=== PATIENT | female | born 1955 | race Caucasian/White ===

== ENCOUNTER → 2016-12-25 | Outpatient (CLI) | payer BC ==
--- NOTE | 2016-12-26 08:17 | MM ---
Reason for exam: screening (asymptomatic). Last mammogram was performed 1 year and 1 month ago. History: Patient is postmenopausal and has history of other cancer at age 51. Benign stereotactic core biopsy of the right breast, September 06, 2002. Physical Findings: A clinical breast exam by your physician is recommended on an annual basis and results should be correlated with mammographic findings. MG Screening Mammo w CAD Bilateral CC and MLO view(s) were taken. Prior study comparison: December 01, 2015, bilateral MG screening mammo w CAD. September 27, 2014, bilateral MG screening mammo w CAD. There are scattered fibroglandular densities. Previous mammotome biopsy within the right breast. There is no discrete abnormality. ASSESSMENT: Benign, BI-RAD 2 RECOMMENDATION: Routine screening mammogram of both breasts in 1 year.
== END | disposition home or self-care (01) ==
LOC: RADMAMWWP 11:26
PROVIDERS: ATTEND Obstetrics & Gynecology
DX: Z12.31 Encounter for screening mammogram for malignant neoplasm of breast (principal)

== ENCOUNTER → 2019-05-06 | Outpatient (CLI) | payer BC ==
[2019-05-06 16:25] LABS: African American GFR (CKD) >90 (>60 ml/min/1.73 sqM); Blood Urea Nitrogen 10 mg/dL (7-17)
--- NOTE | 2019-05-07 08:10 | CT ---
EXAMINATION TYPE: CT chest w con DATE OF EXAM: 05/06/2019 COMPARISON: 01/01/2019 HISTORY: solitary pulmonary nodule CT DLP: 594.5 mGycm Automated exposure control for dose reduction was used. CONTRAST: CT scan of the chest is performed with IV Contrast, patient injected with 100 mL of Isovue 300. FINDINGS: LUNGS: Previously noted nodule within the lateral segment right middle lobe has resolved and may have reflected a portion of an infiltrate. No distinct nodule is appreciated at this time. No infiltrate or volume loss. No evidence of pleural effusion. MEDIASTINUM: No evidence of the pulmonary arteries with pulmonary arterial hypertension noted. Cardio megaly persists. There are no greater than 1 cm hilar or mediastinal lymph nodes. No pericardial ef fusion is seen. Thoracic aorta is of normal caliber. The heart is not enlarged. UPPER ABDOMEN: No significant abnormality appreciated. OTHER: No additional significant abnormality is seen. IMPRESSION: 1.Previously noted nodule within the lateral segment right middle lobe has resolved and may have refl ected a portion of an infiltrate. No distinct nodule is appreciated at this time. 2. Pulmonary arterial hypertension
== END | disposition home or self-care (01) ==
LOC: RADCTMAIN 15:37
PROVIDERS: ATTEND Internal Medicine
DX: R91.1 Solitary pulmonary nodule (principal); I27.21 Secondary pulmonary arterial hypertension; Z88.2 Allergy status to sulfonamides; Z88.1 Allergy status to other antibiotic agents; Z88.8 Allergy status to other drugs, medicaments and biological substances
CPT/HCPCS: 82565; 84520; 71260; 36415; Q9967

== ENCOUNTER 2019-08-02 12:45 | Inpatient (IN) | payer BC, MEDICARE ==
[2019-08-02] MEDS ORDERED: methylPREDNISolone SOD SUCCI 125 MG/2 ML VIAL IV STA (13:17)
[2019-08-02] MEDS ORDERED: IPRATROPIUM-ALBUTEROL 3 ML NEB INHALATION STA (13:17)
--- NOTE | 2019-08-02 13:27 | ED ---
General Adult HPI - General Chief complaint: Shortness of Breath Stated complaint: MACEY Time Seen by Provider: 08/02/19 13:02 Source: patient, RN notes reviewed Mode of arrival: ambulatory Limitations: no limitations - History of Present Illness Initial comments: Patient is a pleasant 61-year-old female presenting to the emergency Department with cough and dyspnea. Onset of symptoms was yesterday. Patient feels somewhat chilled. Cough is productive with yellow to green sputum. Patient does have history of pulmonary hypertension and occasional dyspnea related to that. No chest pain. No leg pain or leg swelling. - Related Data Home Medications Medication Instructions Recorded Confirmed ALPRAZolam [Xanax] 0.25 mg PO Q6H PRN 08/02/19 08/02/19 Citalopram Hydrobromide [CeleXA] 40 mg PO HS 08/02/19 08/02/19 HYDROcodone/APAP 7.5-325MG [[place] 1 tab PO HS PRN 08/02/19 08/02/19 7.5-325] Insulin Aspart Protam & Aspart 40 unit SQ AC-BRKFST 08/02/19 08/02/19 [NovoLOG MIX 70-30 Flexpen] Insulin Aspart Protam & Aspart 60 unit SQ AC-SUPPER 08/02/19 08/02/19 [NovoLOG MIX 70-30 Flexpen] Losartan Potassium [Cozaar] 100 mg PO HS 08/02/19 08/02/19 Omeprazole 20 mg PO HS 08/02/19 08/02/19 Simvastatin [Zocor] 40 mg PO HS 08/02/19 08/02/19 Tadalafil 40 mg PO HS 08/02/19 08/02/19 Tobramycin [Tobrex 0.3% Ophth Soln] 1 drop BOTH EYES QID 08/02/19 08/02/19 amLODIPine [Norvasc] 2.5 mg PO HS 08/02/19 08/02/19 tiZANidine [Zanaflex] 4 mg PO BID PRN 08/02/19 08/02/19 Allergies Allergy/AdvReac Type Severity Reaction Status Date / Time cefaclor [From Ceclor] Allergy Dyspnea Verified 08/02/19 13:23 sulfamethoxazole Allergy Rash/Hives Verified 08/02/19 13:23 [From Bactrim] trimethoprim [From Bactrim] Allergy Rash/Hives Verified 08/02/19 13:23 Review of Systems ROS Statement: Those systems with pertinent positive or pertinent negative responses have been documented in the HPI. ROS Other: All systems not noted in ROS Statement are negative. Constitutional: Reports: chills Eyes: Denies: eye pain ENT: Denies: ear pain Respiratory: Reports: cough, dyspnea Cardiovascular: Denies: chest pain Endocrine: Reports: fatigue Gastrointestinal: Denies: abdominal pain Genitourinary: Denies: urgency Musculoskeletal: Denies: back pain Skin: Denies: rash Neurological: Denies: weakness Past Medical History Past Medical History: Diabetes Mellitus Additional Past Medical History / Comment(s): pulmonary hypertension. CHF. Past Surgical History: Hysterectomy, Orthopedic Surgery Additional Past Surgical History / Comment(s): pancreatic tumor - liver and spleen. melanoma cx on arm and leg. General Exam Limitations: no limitations General appearance: alert, in no apparent distress Head exam: Present: atraumatic Eye exam: Present: normal appearance, PERRL ENT exam: Present: normal oropharynx Neck exam: Present: normal inspection Respiratory exam: Present: wheezes, decreased breath sounds Cardiovascular Exam: Present: regular rate, normal rhythm GI/Abdominal exam: Present: soft. Absent: tenderness Extremities exam: Present: normal inspection. Absent: pedal edema, calf tenderness Neurological exam: Present: alert Psychiatric exam: Present: normal affect, normal mood Skin exam: Present: normal color Course Vital Signs 08/02/19 08/02/19 08/02/19 12:52 13:18 14:07 Temperature 99.5 F Pulse Rate 86 84 Respiratory 22 24 16 Rate Blood Pressure 169/67 O2 Sat by Pulse 90 L Oximetry 08/02/19 08/02/19 14:19 15:34 Temperature Pulse Rate 82 82 Respiratory 18 18 Rate Blood Pressure 133/79 O2 Sat by Pulse 92 L Oximetry EKG Findings - EKG Comments: EKG Findings:: Normal sinus rhythm 80. GA 16. QRS 108. QT 438. QTC 505. Right axis. Normal QRS. T wave inversion diffusely. Medical Decision Making - Medical Decision Making Patient reevaluated and updated. Case was discussed in detail with Dr. yost, covering for hospital call, who will admit. Dr. Robertson will be placed on consult. - Lab Data Result diagrams: 08/02/19 14:28 08/02/19 14:28 Lab Results 08/02/19 08/02/19 08/02/19 Range/Units 14:28 14:28 14:28 WBC 20.6 H (3.8-10.6) k/uL RBC 4.75 (3.80-5.40) m/uL Hgb 13.5 (11.4-16.0) gm/dL Hct 41.4 (34.0-46.0) % MCV 87.1 (80.0-100.0) fL MCH 28.4 (25.0-35.0) pg MCHC 32.6 (31.0-37.0) g/dL RDW 15.6 H (11.5-15.5) % Plt Count 449 (150-450) k/uL Neutrophils % 76 % Lymphocytes % 15 % Monocytes % 6 % Eosinophils % 1 % Basophils % 1 % Neutrophils # 15.6 H (1.3-7.7) k/uL Lymphocytes # 3.0 (1.0-4.8) k/uL Monocytes # 1.1 H (0-1.0) k/uL Eosinophils # 0.3 (0-0.7) k/uL Basophils # 0.2 (0-0.2) k/uL PT (9.0-12.0) sec INR (<1.2) APTT (22.0-30.0) sec D-Dimer (<0.60) mg/L FEU Sodium 140 (137-145) mmol/L Potassium 5.2 H (3.5-5.1) mmol/L Chloride 107 (98-107) mmol/L Carbon Dioxide 25 (22-30) mmol/L Anion Gap 8 mmol/L BUN 7 (7-17) mg/dL Creatinine 0.51 L (0.52-1.04) mg/dL Est GFR (CKD-EPI)AfAm >90 (>60 ml/min/1.73 sqM) Est GFR (CKD-EPI)NonAf >90 (>60 ml/min/1.73 sqM) Glucose 189 H (74-99) mg/dL Plasma Lactic Acid Ehsan 1.4 (0.7-2.0) mmol/L Calcium 9.1 (8.4-10.2) mg/dL Total Bilirubin 0.6 (0.2-1.3) mg/dL AST 19 (14-36) U/L ALT 17 (9-52) U/L Alkaline Phosphatase 93 (38-126) U/L NT-Pro-B Natriuret Pep pg/mL Total Protein 7.4 (6.3-8.2) g/dL Albumin 3.9 (3.5-5.0) g/dL Urine Color Urine Appearance (Clear) Urine pH (5.0-8.0) Ur Specific [place] (1.001-1.035) Urine Protein (Negative) Urine Glucose (UA) (Negative) Urine Ketones (Negative) Urine Blood (Negative) Urine Nitrite (Negative) Urine Bilirubin (Negative) Urine Urobilinogen (<2.0) mg/dL Ur Leukocyte Esterase (Negative) 08/02/19 08/02/19 08/02/19 Range/Units 14:28 14:28 14:28 WBC (3.8-10.6) k/uL RBC (3.80-5.40) m/uL Hgb (11.4-16.0) gm/dL Hct (34.0-46.0) % MCV (80.0-100.0) fL MCH (25.0-35.0) pg MCHC (31.0-37.0) g/dL RDW (11.5-15.5) % Plt Count (150-450) k/uL Neutrophils % % Lymphocytes % % Monocytes % % Eosinophils % % Basophils % % Neutrophils # (1.3-7.7) k/uL Lymphocytes # (1.0-4.8) k/uL Monocytes # (0-1.0) k/uL Eosinophils # (0-0.7) k/uL Basophils # (0-0.2) k/uL PT 10.3 (9.0-12.0) sec INR 1.0 (<1.2) APTT 24.8 (22.0-30.0) sec D-Dimer 0.69 H (<0.60) mg/L FEU Sodium (137-145) mmol/L Potassium (3.5-5.1) mmol/L Chloride (98-107) mmol/L Carbon Dioxide (22-30) mmol/L Anion Gap mmol/L BUN (7-17) mg/dL Creatinine (0.52-1.04) mg/dL Est GFR (CKD-EPI)AfAm (>60 ml/min/1.73 sqM) Est GFR (CKD-EPI)NonAf (>60 ml/min/1.73 sqM) Glucose (74-99) mg/dL Plasma Lactic Acid Ehsan (0.7-2.0) mmol/L Calcium (8.4-10.2) mg/dL Total Bilirubin (0.2-1.3) mg/dL AST (14-36) U/L ALT (9-52) U/L Alkaline Phosphatase (38-126) U/L NT-Pro-B Natriuret Pep 242 pg/mL Total Protein (6.3-8.2) g/dL Albumin (3.5-5.0) g/dL Urine Color Urine Appearance (Clear) Urine pH (5.0-8.0) Ur Specific [place] (1.001-1.035) Urine Protein (Negative) Urine Glucose (UA) (Negative) Urine Ketones (Negative) Urine Blood (Negative) Urine Nitrite (Negative) Urine Bilirubin (Negative) Urine Urobilinogen (<2.0) mg/dL Ur Leukocyte Esterase (Negative) 08/02/19 Range/Units 15:20 WBC (3.8-10.6) k/uL RBC (3.80-5.40) m/uL Hgb (11.4-16.0) gm/dL Hct (34.0-46.0) % MCV (80.0-100.0) fL MCH (25.0-35.0) pg MCHC (31.0-37.0) g/dL RDW (11.5-15.5) % Plt Count (150-450) k/uL Neutrophils % % Lymphocytes % % Monocytes % % Eosinophils % % Basophils % % Neutrophils # (1.3-7.7) k/uL Lymphocytes # (1.0-4.8) k/uL Monocytes # (0-1.0) k/uL Eosinophils # (0-0.7) k/uL Basophils # (0-0.2) k/uL PT (9.0-12.0) sec INR (<1.2) APTT (22.0-30.0) sec D-Dimer (<0.60) mg/L FEU Sodium (137-145) mmol/L Potassium (3.5-5.1) mmol/L Chloride (98-107) mmol/L Carbon Dioxide (22-30) mmol/L Anion Gap mmol/L BUN (7-17) mg/dL Creatinine (0.52-1.04) mg/dL Est GFR (CKD-EPI)AfAm (>60 ml/min/1.73 sqM) Est GFR (CKD-EPI)NonAf (>60 ml/min/1.73 sqM) Glucose (74-99) mg/dL Plasma Lactic Acid Ehsan (0.7-2.0) mmol/L Calcium (8.4-10.2) mg/dL Total Bilirubin (0.2-1.3) mg/dL AST (14-36) U/L ALT (9-52) U/L Alkaline Phosphatase (38-126) U/L NT-Pro-B Natriuret Pep pg/mL Total Protein (6.3-8.2) g/dL Albumin (3.5-5.0) g/dL Urine Color Yellow Urine Appearance Clear (Clear) Urine pH 7.0 (5.0-8.0) Ur Specific [place] 1.013 (1.001-1.035) Urine Protein Negative (Negative) Urine Glucose (UA) 4+ H (Negative) Urine Ketones 1+ H (Negative) Urine Blood Negative (Negative) Urine Nitrite Negative (Negative) Urine Bilirubin Negative (Negative) Urine Urobilinogen <2.0 (<2.0) mg/dL Ur Leukocyte Esterase Negative (Negative) - Radiology Data Radiology results: image reviewed (Chest x-ray shows cardiomegaly. Stable abnormal findings. Pulmonary artery hypertension.) Disposition Clinical Impression: Acute exacerbation of chronic obstructive pulmonary disease Disposition: ADMITTED IP TO THIS HOSP Is patient prescribed a controlled substance at d/c from ED?: No Referrals: Deisy Robertson MD [Primary Care Provider] - 1-2 days Decision Time: 16:01
[2019-08-02 14:53] LABS: Basophils # (A) 0.2 k/uL (0-0.2); Basophils % (A) 1 %; Eosinophils # (A) 0.3 k/uL (0-0.7); Eosinophils % (A) 1 %; HCT 41.4 % (34.0-46.0); HGB 13.5 gm/dL (11.4-16.0); Lymphocytes % (A) 15 %; MCH 28.4 pg (25.0-35.0); MCHC 32.6 g/dL (31.0-37.0); MCV 87.1 fL (80.0-100.0); Mean Platelet Volume 6.2; Monocytes # (A) 1.1 k/uL (0-1.0); Monocytes % (A) 6 %; Neutrophils # (A) 15.6 k/uL (1.3-7.7); Neutrophils % (A) 76 %; Platelet Count 449 k/uL (150-450); RBC 4.75 m/uL (3.80-5.40); RDW 15.6 % (11.5-15.5); WBC 20.6 k/uL (3.8-10.6)
[2019-08-02 15:02] LABS: Partial Thromboplastin Time 24.8 sec (22.0-30.0); Prothrombin Time 10.3 sec (9.0-12.0)
--- NOTE | 2019-08-02 15:02 | XR ---
EXAMINATION TYPE: XR chest 2V DATE OF EXAM: 08/02/2019 COMPARISON: Prior chest x-ray 12/30/2018, CT chest 05/06/2019 HISTORY: Difficulty breathing TECHNIQUE: Frontal and lateral views of the chest are obtained on 3 images. FINDINGS: Findings are similar. Prominence of the central pulmonary vascular shadows again noted, he art remains enlarged. There are overlying cardiac leads. No pneumothorax or pleural effusion. Exam is limited technically. IMPRESSION: Stable abnormal findings. Correlate for pulmonary artery hypertension. Heart is likely.
[2019-08-02 15:06] LABS: ALT 17 U/L (9-52); AST 19 U/L (14-36); African American GFR (CKD) >90 (>60 ml/min/1.73 sqM); Albumin 3.9 g/dL (3.5-5.0); Alkaline Phosphatase 93 U/L (38-126); Anion Gap 8 mmol/L; Blood Urea Nitrogen 7 mg/dL (7-17); Calcium 9.1 mg/dL (8.4-10.2); Carbon Dioxide 25 mmol/L (22-30); Chloride 107 mmol/L (98-107); Glucose 189 mg/dL (74-99); Sodium 140 mmol/L (137-145); Total Bilirubin 0.6 mg/dL (0.2-1.3); Total Protein 7.4 g/dL (6.3-8.2)
[2019-08-02 15:13] LABS: Potassium 5.2 mmol/L (3.5-5.1)
[2019-08-02 15:39] LABS: Appearance,Urine Clear (Clear); Bilirubin,Urine Negative (Negative); Blood,Urine Negative (Negative); Color,Urine Yellow; Glucose,Urine (UA) 4+ (Negative); Ketones,Urine 1+ (Negative); Leukocyte Esterase,Urine Negative (Negative); Nitrite,Urine Negative (Negative); Protein,Urine Negative (Negative); Specific Gravity,Urine 1.013 (1.001-1.035); Urobilinogen,Urine <2.0 mg/dL (<2.0)
[2019-08-02] MEDS ORDERED: IPRATROPIUM-ALBUTEROL 3 ML NEB INHALATION PRN (16:05)
[2019-08-02] MEDS ORDERED: HYDROcodone/APAP 7.5-325MG 1 EACH TAB PO PRN (16:24)
--- NOTE | 2019-08-02 17:00 | CT ---
CT CHEST FOR PULMONARY EMBOLISM. EXAMINATION TYPE: CT angio chest DATE OF EXAM: 08/02/2019 INDICATION: Dyspnea, history of pulmonary hypertension. CT DLP: 841.9 mGycm, Automated exposure control for dose reduction was used. CONTRAST: Patient injected with 100ml mL of Isovue 370. COMPARISON: 05/06/2019 TECHNIQUE: CT of the chest is performed on a spiral scan at 2 mm thick sections. Study is performed with intravenous contrast timed for evaluation for pulmonary embolism. This will limit additional po rtions of the evaluation. 3-D MIP images reconstructed by the technologist are reviewed on the compu ter in the coronal and sagittal planes. FINDINGS: No persistent filling defects are evident to suggest an acute pulmonary embolism. No mediastinal or hilar adenopathy enlarged by CT criteria is evident. The ascending aorta diameter at the level of the main pulmonary artery is 3.9 cm. The main pulmonary artery diameter at the bifur cation is 4.2 cm. Mild pulmonary artery hypertension may be present. Lung windows are clear. Limited CT section through the upper abdomen. Note is made of a bowel within an anterior epigastric a bdominal wall hernia. IMPRESSIONS: 1. No acute pulmonary embolism. 2. Mild pulmonary artery hypertension may be present. 3. Anterior abdominal wall hernia containing a nonobstructed loop of colon.
--- NOTE | 2019-08-02 17:10 | P.HPIM ---
History of Present Illness This is a pleasant 63 years old female with past medical history of pulmonary hypertension, diabetes mellitus, congestive heart failure. Presents because of dyspnea with chest tightness of one-day duration that started yesterday. he history is limited due to her dyspnea. Also patient is complaining of from cough with green yellow phlegm. She denies chest pain. Vitas looks stable and she is saturating 90% on room air. She stick technique with a breathing rate 16-24. Blood pressure 169/67 and temperature 99.5. labs reviewed, showing elevated WBC of 20.6k, INR 1.0, elevated D-Dimer at 0.69, glucose 189,k:52, creatinine 0.5, liver enz not elevated, proBNP 242, CXR: pulmonary Hypertension Review of Systems CONSTITUTIONAL: No fever, no malaise, no fatigue. HEENT: No recent visual problems or hearing problems. Denied any sore throat. CARDIOVASCULAR: no palpitations, no syncope. PULMONARY: no hemoptysis. GASTROINTESTINAL: No diarrhea, no nausea, no vomiting, no abdominal pain. N ormoactive bowel sounds. NEUROLOGICAL: No headaches, no weakness, no numbness. HEMATOLOGICAL: Denies any bleeding or petechiae. GENITOURINARY: Denies any burning micturition, frequency, or urgency. MUSCULOSKELETAL/RHEUMATOLOGICAL: Denies any joint pain, swelling, or any muscle pain. ENDOCRINE: Denies any polyuria or polydipsia. Past Medical History Past Medical History: Diabetes Mellitus Additional Past Medical History / Comment(s): pulmonary hypertension. CHF. Past Surgical History: Hysterectomy, Orthopedic Surgery Additional Past Surgical History / Comment(s): pancreatic tumor - liver and spleen. melanoma cx on arm and leg. Medications and Allergies Home Medications Medication Instructions Recorded Confirmed Type ALPRAZolam [Xanax] 0.25 mg PO Q6H PRN 08/02/19 08/02/19 History Citalopram Hydrobromide [CeleXA] 40 mg PO HS 08/02/19 08/02/19 History HYDROcodone/APAP 7.5-325MG [[place] 1 tab PO HS PRN 08/02/19 08/02/19 History 7.5-325] Insulin Aspart Protam & Aspart 40 unit SQ AC-BRKFST 08/02/19 08/02/19 History [NovoLOG MIX 70-30 Flexpen] Insulin Aspart Protam & Aspart 60 unit SQ AC-SUPPER 08/02/19 08/02/19 History [NovoLOG MIX 70-30 Flexpen] Losartan Potassium [Cozaar] 100 mg PO HS 08/02/19 08/02/19 History Omeprazole 20 mg PO HS 08/02/19 08/02/19 History Simvastatin [Zocor] 40 mg PO HS 08/02/19 08/02/19 History Tadalafil 40 mg PO HS 08/02/19 08/02/19 History Tobramycin [Tobrex 0.3% Ophth Soln] 1 drop BOTH EYES QID 08/02/19 08/02/19 History amLODIPine [Norvasc] 2.5 mg PO HS 08/02/19 08/02/19 History tiZANidine [Zanaflex] 4 mg PO BID PRN 08/02/19 08/02/19 History Allergies Allergy/AdvReac Type Severity Reaction Status Date / Time cefaclor [From Ceclor] Allergy Dyspnea Verified 08/02/19 13:23 sulfamethoxazole Allergy Rash/Hives Verified 08/02/19 13:23 [From Bactrim] trimethoprim [From Bactrim] Allergy Rash/Hives Verified 08/02/19 13:23 Physical Exam Vitals: Vital Signs Temp Pulse Resp BP Pulse Ox 08/02/19 13:18 24 08/02/19 12:52 99.5 F 86 22 169/67 90 L Intake and Output 08/01/19 08/02/19 08/02/19 22:59 06:59 14:59 Other: Weight 122.47 kg -GENERAL: The patient is alert and oriented x3, not in any acute distress. Obese HEENT: Pupils are round and equally reacting to light. EOMI. No scleral icterus. No conjunctival pallor. Normocephalic, atraumatic. No pharyngeal erythema. No thyromegaly. CARDIOVASCULAR: S1 and S2 present. No murmurs, rubs, or gallops. -PULMONARY: Decreased breath sounds in both lungs. Chest is clear to auscultation, no wheezing or crackles. ABDOMEN: Soft, nontender, nondistended, normoactive bowel sounds. No palpable organomegaly. MUSCULOSKELETAL: No joint swelling or deformity. EXTREMITIES: No cyanosis, clubbing, or pedal edema. NEUROLOGICAL: Gross neurological examination did not reveal any focal deficits. SKIN: No rashes. No petechiae Results CBC & Chem 7: 08/02/19 14:28 08/02/19 14:28 Assessment and Plan Assessment: acute dyspnea , rule out pulmonary and cardiac causes elevated D-Dimer , pt is undergoing CTA of the chest possible acute tracheobronchitis ST depression in the anterolateral leads leukocytosis pulmonary hypertension Type II Diabetes mellitus Chronic congestive heart failure Chronic pulmonary hypertension Obesity Plan: This is a pleasant 63 years old female who presents with dyspnea. continue with antibioitic pt has CTA of the chest and result is pending . continue with steroid, We'll call pulmonary and cardiology consult. continue with breathing treatment, and oxygen, serial troponin Labs and medication were reviewed.. Continue same treatment. Continue with symptomatic treatment. Resume home medication. Monitor lytes and vitals. DVT and GI prophylaxis. Further recommendations of the clinical course of the patient DVT prophylaxis: Subcutaneous heparin GI Prophylaxis: Pepcid PT/OT: Pending Prognosis is guarded
[2019-08-02] MEDS: INSULN ASP PRT/INSULIN ASPART 100 UNIT/ML 10 ML VIAL SQ SCH (19:00)
[2019-08-02 19:06] LABS: Glucose,Whole Blood 234 mg/dL (75-99)
[2019-08-02] MEDS: IPRATROPIUM-ALBUTEROL 3 ML NEB INHALATION SCH (19:45)
[2019-08-02] MEDS: methylPREDNISolone SOD SUCCI 125 MG/2 ML VIAL IV SCH ×2 (20:51→23:17)
[2019-08-02] MEDS ORDERED: amLODIPine 2.5 MG TAB PO SCH (21:00)
[2019-08-02] MEDS ORDERED: METOPROLOL TARTRATE 12.5 MG TAB PO SCH (21:00)
[2019-08-02] MEDS: TOBRAMYCIN 0.3% OPHTH DROPS 5 ML BTL BOTH EYES SCH ×2 (21:32→21:35)
[2019-08-02] MEDS: LOSARTAN 50 MG TAB PO SCH (21:33)
[2019-08-02] MEDS: metFORMIN 500 MG TAB PO SCH (21:33)
[2019-08-02] MEDS: ALPRAZolam 0.25 MG TAB PO PRN (21:33)
[2019-08-02] MEDS: ATORVASTATIN 20 MG TAB PO SCH (21:33)
[2019-08-03 06:45] LABS: Glucose,Whole Blood 223 mg/dL (75-99)
[2019-08-03] MEDS: INSULIN ASPART (NovoLOG) 100 UNIT/ML VIAL SQ SCH ×4 (07:01→20:43)
[2019-08-03] MEDS: methylPREDNISolone SOD SUCCI 125 MG/2 ML VIAL IV SCH ×2 (07:01→12:07)
[2019-08-03 07:24] LABS: Basophils # (A) 0.1 k/uL (0-0.2); Basophils % (A) 0 %; Eosinophils # (A) 0.1 k/uL (0-0.7); Eosinophils % (A) 1 %; HGB 13.8 gm/dL (11.4-16.0); Hypochromasia Slight; Lymphocytes # (A) 2.2 k/uL (1.0-4.8); Lymphocytes % (A) 12 %; MCH 27.7 pg (25.0-35.0); MCHC 30.5 g/dL (31.0-37.0); MCV 90.7 fL (80.0-100.0); Mean Platelet Volume 6.9; Monocytes % (A) 6 %; Neutrophils # (A) 14.6 k/uL (1.3-7.7); Neutrophils % (A) 80 %; Platelet Count 440 k/uL (150-450); RBC 4.96 m/uL (3.80-5.40); RDW 15.8 % (11.5-15.5); WBC 18.2 k/uL (3.8-10.6)
[2019-08-03 07:34] LABS: African American GFR (CKD) >90 (>60 ml/min/1.73 sqM); Anion Gap 13 mmol/L; Blood Urea Nitrogen 11 mg/dL (7-17); Calcium 9.6 mg/dL (8.4-10.2); Carbon Dioxide 23 mmol/L (22-30); Chloride 104 mmol/L (98-107); Glucose 227 mg/dL (74-99); Potassium 4.7 mmol/L (3.5-5.1); Sodium 140 mmol/L (137-145)
[2019-08-03 08:00] LABS: Creatine Kinase MB 1.6 ng/mL (0.0-2.4)
[2019-08-03] MEDS: IPRATROPIUM-ALBUTEROL 3 ML NEB INHALATION SCH ×4 (08:02→20:12)
--- NOTE | 2019-08-03 08:17 | P.PN ---
Subjective This is a pleasant 63 years old female with past medical history of pulmonary hypertension, diabetes mellitus, congestive heart failure. Presents because of dyspnea with chest tightness of one-day duration that started yesterday. he history is limited due to her dyspnea. Also patient is complaining of from cough with green yellow phlegm. She denies chest pain. Vitas looks stable and she is saturating 90% on room air. She stick technique with a breathing rate 16-24. Blood pressure 169/67 and temperature 99.5. labs reviewed, showing elevated WBC of 20.6k, INR 1.0, elevated D-Dimer at 0.69, glucose 189,k:52, creatinine 0.5, liver enz not elevated, proBNP 242, CXR: pulmonary Hypertension 08/03/2019 Patient breathing is better today although she still dyspneic and tachypneic having addressed this and sent exertion. She still have some cough but her sputum is better today. On exam she has decreased air entry on both sides and bilateral leg swelling. She saturating 92% on 2-3 L of oxygen via nasal cannula. She is breathing at a rate of low 20s. She is afebrile and her WBC is coming down to 18 K. We will add Lasix 40 mg daily. Her CTA of the chest showing no pulmonary embolism and mild pulmonary artery hypertension. Patient is currently on oral Levaquin and Solu-Medrol 60 mg. DC Norvasc for leg edema, and increase metoprolol 25 mg twice daily. And she is on insulin 70:30 at 60 units p.m. and 40 units a.m. her sugar is acceptable controlled at 223-234. Review of systems CONSTITUTIONAL: No fever, no malaise, no fatigue. HEENT: No recent visual problems or hearing problems. Denied any sore throat. CARDIOVASCULAR: no palpitations, no syncope. PULMONARY: no hemoptysis. GASTROINTESTINAL: No diarrhea, no nausea, no vomiting, no abdominal pain. Normoactive bowel sounds. NEUROLOGICAL: No headaches, no weakness, no numbness. HEMATOLOGICAL: Denies any bleeding or petechiae. GENITOURINARY: Denies any burning micturition, frequency, or urgency. MUSCULOSKELETAL/RHEUMATOLOGICAL: Denies any joint pain, swelling, or any muscle pain. ENDOCRINE: Denies any polyuria or polydipsia. Active Medications Generic Name Dose Route Start Last Admin Trade Name Freq PRN Reason Stop Dose Admin Hydrocodone Bitart/Acetaminophen 1 each 08/02/19 16:24 [place]ham 7.5-325 PO HS PRN Pain Albuterol/Ipratropium 3 ml 08/02/19 20:00 08/03/19 08:02 Duoneb 0.5 Mg-3 Mg/3 Ml Soln INHALATION 3 ml RT-QID ALEISHA Administration Albuterol/Ipratropium 3 ml 08/02/19 16:05 Duoneb 0.5 Mg-3 Mg/3 Ml Soln INHALATION RT-Q4H PRN Shortness Of Breath Or Wheezing Alprazolam 0.25 mg 08/02/19 21:21 08/02/19 21:33 Xanax PO 0.25 mg QID PRN Administration Anxiety Amlodipine Besylate 2.5 mg 08/02/19 21:00 08/02/19 21:33 Norvasc PO 2.5 mg HS ALEISHA Administration Atorvastatin Calcium 20 mg 08/02/19 21:00 08/02/19 21:33 Lipitor PO 20 mg HS ALEISHA Administration Citalopram Hydrobromide 40 mg 08/03/19 09:00 Celexa PO DAILY ALEISHA Furosemide 40 mg 08/03/19 09:00 Lasix IV DAILY ALEISHA Insulin Aspart 40 unit 08/03/19 07:30 Novolog Mix 70-30 Vial SQ AC-BRKFST ALEISHA Insulin Aspart 60 unit 08/02/19 17:30 08/02/19 19:00 Novolog Mix 70-30 Vial SQ 60 unit AC-SUPPER ALEISHA Administration Insulin Aspart 0 unit 08/03/19 07:30 08/03/19 07:01 Novolog SQ 4 unit ACHS ALEISHA Administration Protocol Levofloxacin 500 mg 08/03/19 09:00 Levaquin PO 08/10/19 09:01 DAILY ALEISHA Losartan Potassium 100 mg 08/02/19 21:00 08/02/19 21:33 Cozaar PO 100 mg HS ALEISHA Administration Metformin HCl 500 mg 08/02/19 21:30 08/02/19 21:33 Glucophage PO 500 mg HS ALEISHA Administration Methylprednisolone Sodium Succinate 60 mg 08/02/19 18:00 08/03/19 07:01 Solu-Medrol IV 60 mg Q6HR ALEISHA Administration Metoprolol Tartrate 12.5 mg 08/02/19 21:00 08/02/19 21:33 Lopressor PO 12.5 mg BID ALEISHA Administration (Tadalafil [ 40 mg 08/02/19 21:00 08/02/19 21:11 Tadalafil] 40 Mg) PO Not Given HS ALEISHA Tobramycin 1 drops 08/02/19 18:00 08/02/19 21:35 Tobrex BOTH EYES Not Given QID ALEISHA Objective - Vital Signs Vital signs: Vital Signs Temp 97.8 F 08/03/19 04:00 Pulse 71 08/03/19 04:00 Resp 20 08/03/19 04:00 BP 143/77 08/03/19 04:00 Pulse Ox 92 L 08/03/19 04:00 Intake & Output 08/02/19 08/03/19 08/03/19 18:59 06:59 18:59 Intake Total 120 Balance 120 Weight 122.47 kg 129.7 kg Intake: Oral 120 Other: Voiding Method Toilet # Voids 1 - Exam GENERAL: The patient is alert and oriented x3, not in any acute distress. Obese HEENT: Pupils are round and equally reacting to light. EOMI. No scleral icterus. No conjunctival pallor. Normocephalic, atraumatic. No pharyngeal erythema. No thyromegaly. CARDIOVASCULAR: S1 and S2 present. No murmurs, rubs, or gallops. -PULMONARY: Decreased air entry in both sides. Chest is clear to auscultation, no wheezing or crackles. ABDOMEN: Soft, nontender, nondistended, normoactive bowel sounds. No palpable organomegaly. MUSCULOSKELETAL: No joint swelling or deformity. -EXTREMITIES: No cyanosis, clubbing, bilateral leg edema NEUROLOGICAL: Gross neurological examination did not reveal any focal deficits. SKIN: No rashes. no petechiae. - Labs CBC & Chem 7: 08/03/19 06:51 08/03/19 06:51 Labs: Abnormal Lab Results - Last 24 Hours (Table) 08/02/19 08/02/19 08/02/19 Range/Units 14:28 14:28 14:28 WBC 20.6 H (3.8-10.6) k/uL MCHC (31.0-37.0) g/dL RDW 15.6 H (11.5-15.5) % Neutrophils # 15.6 H (1.3-7.7) k/uL Monocytes # 1.1 H (0-1.0) k/uL D-Dimer 0.69 H (<0.60) mg/L FEU Potassium 5.2 H (3.5-5.1) mmol/L Creatinine 0.51 L (0.52-1.04) mg/dL Glucose 189 H (74-99) mg/dL POC Glucose (mg/dL) (75-99) mg/dL Urine Glucose (UA) (Negative) Urine Ketones (Negative) 08/02/19 08/02/19 08/03/19 Range/Units 15:20 18:58 06:43 WBC (3.8-10.6) k/uL MCHC (31.0-37.0) g/dL RDW (11.5-15.5) % Neutrophils # (1.3-7.7) k/uL Monocytes # (0-1.0) k/uL D-Dimer (<0.60) mg/L FEU Potassium (3.5-5.1) mmol/L Creatinine (0.52-1.04) mg/dL Glucose (74-99) mg/dL POC Glucose (mg/dL) 234 H 223 H (75-99) mg/dL Urine Glucose (UA) 4+ H (Negative) Urine Ketones 1+ H (Negative) 08/03/19 08/03/19 Range/Units 06:51 06:51 WBC 18.2 H (3.8-10.6) k/uL MCHC 30.5 L (31.0-37.0) g/dL RDW 15.8 H (11.5-15.5) % Neutrophils # 14.6 H (1.3-7.7) k/uL Monocytes # (0-1.0) k/uL D-Dimer (<0.60) mg/L FEU Potassium (3.5-5.1) mmol/L Creatinine (0.52-1.04) mg/dL Glucose 227 H (74-99) mg/dL POC Glucose (mg/dL) (75-99) mg/dL Urine Glucose (UA) (Negative) Urine Ketones (Negative) Assessment and Plan Assessment: acute dyspnea , rule out cardiac causes elevated D-Dimer , CTA of the chest is negative for pulmonary embolism possible acute tracheobronchitis ST depression in the anterolateral leads leukocytosis Bilateral leg edema pulmonary hypertension Type II Diabetes mellitus Chronic congestive heart failure Chronic pulmonary hypertension Obesity Plan: This is a pleasant 63 years old female who presents with dyspnea. continue with antibioitic pt has CTA of the chest and result is pending . continue with steroid, We'll call pulmonary and cardiology consult. continue with breathing treatment, and oxygen, serial troponin. Stop Norvasc a few of leg edema and start beta olaf Labs and medication were reviewed.. Continue same treatment. Continue with symptomatic treatment. Resume home medication. Monitor lytes and vitals. DVT and GI prophylaxis. Further recommendations of the clinical course of the patient DVT prophylaxis: Subcutaneous heparin GI Prophylaxis: Pepcid PT/OT: Pending Prognosis is guarded
[2019-08-03] MEDS: LEVOFLOXACIN 500 MG TAB PO SCH (09:10)
[2019-08-03] MEDS: CITALOPRAM HYDROBROMIDE 20 MG TAB PO SCH (09:10)
[2019-08-03] MEDS: INSULN ASP PRT/INSULIN ASPART 100 UNIT/ML 10 ML VIAL SQ SCH ×2 (09:10→16:52)
[2019-08-03] MEDS: FUROSEMIDE 10 MG/ML 4 ML VIAL IV SCH (09:12)
[2019-08-03] MEDS: METOPROLOL TARTRATE 25 MG TAB PO SCH ×2 (09:16→20:43)
[2019-08-03] MEDS: TOBRAMYCIN 0.3% OPHTH DROPS 5 ML BTL BOTH EYES SCH ×4 (09:17→20:57)
[2019-08-03 11:34] LABS: Glucose,Whole Blood 290 mg/dL (75-99)
--- NOTE | 2019-08-03 11:36 | P.CRDCN ---
History of Present Illness Consult date: 08/03/19 Requesting physician: Oliver E Sheet Consult reason: shortness of breath Chief complaint: Shortness of breath History of present illness: This is a 63-year-old female with history of diabetes, hypertension, hyperlipidemia, pulmonary hypertension for which she follows with Dr. Cunha at [facility], obesity, sleep apnea, presented to the hospital with symptoms of 3 day duration of progressively worsening shortness of breath. Patient also states that along with the shortness of breath, her chest felt tight, she had been coughing, green to yellowish sputum. Denies any fever at home. Chest x-ray on presentation here showed stable abnormal findings, pulmonary arterial hypertension. A CTA of the chest was performed because of mildly abnormal d-dimer, no acute pulmonary embolism noted, pulmonary arterial hypertension noted. Her EKG on presentation here showed a normal sinus rhythm with ST-T wave changes noted in the inferior anterior and lateral leads, correct ed prolonged QT measuring 505. White blood cell count 20.6 on admission, 18.2 this morning, white blood cell count 13.8, platelet count 440. D-dimer 0.69. Sodium 140, potassium 5.2 on admission, 4.7 this morning, BUN 11 and creatinine 0.5. Troponins negative 2. BNP 242. Blood pressure 128/64 with a heart rate in the 80s, 90% on 3 L of oxygen. Past Medical History Past Medical History: Diabetes Mellitus Additional Past Medical History / Comment(s): pulmonary hypertension. CHF. History of Any Multi-Drug Resistant Organisms: None Reported Past Surgical History: Hysterectomy, Orthopedic Surgery Additional Past Surgical History / Comment(s): pancreatic tumor - gallbladder and spleen. melanoma cx on arm and leg. BL knee scope Smoking Status: Former smoker Medications and Allergies Home Medications Medication Instructions Recorded Confirmed Type ALPRAZolam [Xanax] 0.25 mg PO Q6H PRN 08/02/19 08/02/19 History Citalopram Hydrobromide [CeleXA] 40 mg PO HS 08/02/19 08/02/19 History HYDROcodone/APAP 7.5-325MG [Purmela 1 tab PO HS PRN 08/02/19 08/02/19 History 7.5-325] Insulin Aspart Protam & Aspart 40 unit SQ AC-BRKFST 08/02/19 08/02/19 History [NovoLOG MIX 70-30 Flexpen] Insulin Aspart Protam & Aspart 60 unit SQ AC-SUPPER 08/02/19 08/02/19 History [NovoLOG MIX 70-30 Flexpen] Losartan Potassium [Cozaar] 100 mg PO HS 08/02/19 08/02/19 History Omeprazole 20 mg PO HS 08/02/19 08/02/19 History Simvastatin [Zocor] 40 mg PO HS 08/02/19 08/02/19 History Tadalafil 40 mg PO HS 08/02/19 08/02/19 History Tobramycin [Tobrex 0.3% Ophth Soln] 1 drop BOTH EYES QID 08/02/19 08/02/19 History amLODIPine [Norvasc] 2.5 mg PO HS 08/02/19 08/02/19 History metFORMIN HCL [Glucophage] 500 mg PO DAILY 08/02/19 08/02/19 History tiZANidine [Zanaflex] 4 mg PO BID PRN 08/02/19 08/02/19 History Allergies Allergy/AdvReac Type Severity Reaction Status Date / Time cefaclor [From Ceclor] Allergy Dyspnea Verified 08/02/19 13:23 sulfamethoxazole Allergy Rash/Hives Verified 08/02/19 13:23 [From Bactrim] trimethoprim [From Bactrim] Allergy Rash/Hives Verified 08/02/19 13:23 Physical Exam Vitals: Vital Signs Temp Pulse Pulse Resp BP BP Pulse Ox 08/03/19 08:19 88 08/03/19 08:03 84 08/03/19 08:00 97.8 F 80 16 128/65 90 L 08/03/19 04:00 97.8 F 71 20 143/77 92 L 08/03/19 00:00 98.4 F 77 20 143/81 93 L 08/02/19 22:26 98 08/02/19 21:33 98 18 116/62 92 L 08/02/19 19:47 90 16 08/02/19 18:32 99.3 F 80 22 142/87 97 08/02/19 18:30 82 18 162/79 93 L 08/02/19 18:00 84 23 148/84 91 L 08/02/19 17:30 80 22 145/90 90 L 08/02/19 17:00 78 18 91 L 08/02/19 16:30 19 138/69 08/02/19 16:00 80 21 133/79 90 L 08/02/19 15:34 82 18 133/79 92 L 08/02/19 15:30 85 18 89 L 08/02/19 15:00 84 16 165/89 91 L 08/02/19 14:30 89 26 H 165/89 93 L 08/02/19 14:19 82 18 08/02/19 14:07 84 16 08/02/19 14:00 143/88 93 L 08/02/19 13:30 75 20 143/84 92 L 08/02/19 13:18 24 08/02/19 13:05 80 13 08/02/19 12:52 99.5 F 86 22 169/67 90 L Intake and Output 08/02/19 08/03/19 08/03/19 22:59 06:59 14:59 Intake Total 120 Balance 120 Intake: Oral 120 Other: Voiding Method Toilet Toilet # Voids 1 Weight 129.7 kg PHYSICAL EXAMINATION: GENERAL: 63-year-old female in no acute distress at the time of my examination HEENT: Head is atraumatic, normocephalic. Pupils equal, round. Sclera anicteric. Conjunctiva are clear. Mucous membranes of the mouth are moist. Neck is supple. There is elevated jugular venous pressure. No carotid bruit is heard. HEART EXAMINATION: Heart S1, S2 normal. No murmur or gallop heard. CHEST EXAMINATION:'s reveal decreased air exchange throughout with scattered wheezing and mild diminished air entry to the bases ABDOMEN: Soft, obese, nontender. Bowel sounds are heard. No organomegaly noted. EXTREMITIES: 2+ peripheral pulses with trace evidence of peripheral edema and no calf tenderness noted. NEUROLOGIC patient is awake, alert and oriented 3 . . Results 08/03/19 06:51 08/03/19 06:51 Cardiac Enzymes 08/02/19 08/02/19 08/03/19 Range/Units 14:28 19:48 06:51 AST 19 (14-36) U/L CK-MB (CK-2) 1.6 (0.0-2.4) ng/mL Troponin I <0.012 (0.000-0.034) ng/mL 08/03/19 Range/Units 06:51 AST (14-36) U/L CK-MB (CK-2) (0.0-2.4) ng/mL Troponin I <0.012 (0.000-0.034) ng/mL Coagulation 08/02/19 Range/Units 14:28 PT 10.3 (9.0-12.0) sec APTT 24.8 (22.0-30.0) sec CBC 08/02/19 08/03/19 Range/Units 14:28 06:51 WBC 20.6 H 18.2 H (3.8-10.6) k/uL RBC 4.75 4.96 (3.80-5.40) m/uL Hgb 13.5 13.8 (11.4-16.0) gm/dL Hct 41.4 45.0 (34.0-46.0) % Plt Count 449 440 (150-450) k/uL Comprehensive Metabolic Panel 08/02/19 08/03/19 Range/Units 14:28 06:51 Sodium 140 140 (137-145) mmol/L Potassium 5.2 H 4.7 (3.5-5.1) mmol/L Chloride 107 104 (98-107) mmol/L Carbon Dioxide 25 23 (22-30) mmol/L BUN 7 11 (7-17) mg/dL Creatinine 0.51 L 0.56 (0.52-1.04) mg/dL Glucose 189 H 227 H (74-99) mg/dL Calcium 9.1 9.6 (8.4-10.2) mg/dL AST 19 (14-36) U/L ALT 17 (9-52) U/L Alkaline Phosphatase 93 (38-126) U/L Total Protein 7.4 (6.3-8.2) g/dL Albumin 3.9 (3.5-5.0) g/dL Current Medications Generic Name Dose Route Start Last Admin Trade Name Freq PRN Reason Stop Dose Admin Hydrocodone Bitart/Acetaminophen 1 each 08/02/19 16:24 Purmela 7.5-325 PO HS PRN Pain Albuterol/Ipratropium 3 ml 08/02/19 20:00 08/03/19 08:02 Duoneb 0.5 Mg-3 Mg/3 Ml Soln INHALATION 3 ml RT-QID ALEISHA Administration Albuterol/Ipratropium 3 ml 08/02/19 16:05 Duoneb 0.5 Mg-3 Mg/3 Ml Soln INHALATION RT-Q4H PRN Shortness Of Breath Or Wheezing Alprazolam 0.25 mg 08/02/19 21:21 08/02/19 21:33 Xanax PO 0.25 mg QID PRN Administration Anxiety Atorvastatin Calcium 20 mg 08/02/19 21:00 08/02/19 21:33 Lipitor PO 20 mg HS ALEISHA Administration Citalopram Hydrobromide 40 mg 08/03/19 09:00 08/03/19 09:10 Celexa PO 40 mg DAILY ALEISHA Administration Furosemide 40 mg 08/03/19 09:00 08/03/19 09:12 Lasix IV 40 mg DAILY ALEISHA Administration Insulin Aspart 40 unit 08/03/19 07:30 08/03/19 09:10 Novolog Mix 70-30 Vial SQ 40 unit AC-BRKFST ALEISHA Administration Insulin Aspart 60 unit 08/02/19 17:30 08/02/19 19:00 Novolog Mix 70-30 Vial SQ 60 unit AC-SUPPER ALEISHA Administration Insulin Aspart 0 unit 08/03/19 07:30 08/03/19 07:01 Novolog SQ 4 unit ACHS ALEISHA Administration Protocol Levofloxacin 500 mg 08/03/19 09:00 08/03/19 09:10 Levaquin PO 08/10/19 09:01 500 mg DAILY ALEISHA Administration Losartan Potassium 100 mg 08/02/19 21:00 08/02/19 21:33 Cozaar PO 100 mg HS ALEISHA Administration Metformin HCl 500 mg 08/02/19 21:30 08/02/19 21:33 Glucophage PO 500 mg HS ALEISHA Administration Methylprednisolone Sodium Succinate 60 mg 08/02/19 18:00 08/03/19 07:01 Solu-Medrol IV 60 mg Q6HR ALEISHA Administration Metoprolol Tartrate 25 mg 08/03/19 09:00 08/03/19 09:16 Lopressor PO 25 mg BID ALEISHA Administration (Tadalafil [ 40 mg 08/02/19 21:00 08/02/19 21:11 Tadalafil] 40 Mg) PO Not Given HS ALEISHA Tobramycin 1 drops 08/02/19 18:00 08/03/19 09:17 Tobrex BOTH EYES Not Given QID ALEISHA Intake and Output 08/02/19 08/03/19 08/03/19 22:59 06:59 14:59 Intake Total 120 Balance 120 Intake: Oral 120 Other: Voiding Method Toilet Toilet # Voids 1 Weight 129.7 kg 08/03/19 06:51 08/03/19 06:51 EKG Interpretations (text) EKG shows a normal sinus rhythm with ST-T wave changes noted in the inferior anterior lateral leads. Assessment and Plan Plan: Assessment and plan #1 symptoms of progressively worsening shortness of breath over a 2-3 day duration. Possible tracheobronchitis with mild congestive heart failure acute on chronic, LV function unknown. BNP level CCXLII on admission, it is known that patients with obesity can reflect a low BNP level with the presence of congestive heart failure. #2 pulmonary hypertension, patient follows at [facility], on tadalafil as an outpatient. #3 diabetes #4 hypertension #5 hyperlipidemia #6 obesity #7 sleep apnea Plan We will obtain an echocardiogram with Doppler study. Continue current dose of IV Lasix. Continue tadalafil, losartan, metoprolol, Lipitor. We will also request records from [facility]. Further recommendations to follow. DNP note has been reviewed, I agree with a documented findings and plan of care. Patient was seen and examined.
[2019-08-03 13:25] LABS: Creatine Kinase 278 U/L (30-135)
[2019-08-03 13:36] LABS: Creatine Kinase MB 2.7 ng/mL (0.0-2.4); Troponin I <0.012 ng/mL (0.000-0.034)
--- NOTE | 2019-08-03 14:25 | P.CNPUL ---
History of Present Illness Consult date: 08/03/19 Reason for consult: dyspnea, cough, COPD Chief complaint: Shortness of breath, cough, wheezing, phlegm production, chest tightness History of present illness: This is a 63-year-old white female patient of Dr. Harvey, with past medical history of diabetes mellitus type 2, hypertension, severe pulmonary hypertension for which the patient on tadalafil and she follows at the [facility] pulmonary hypertension clinic, home oxygen, obstructive sleep apnea on CPAP, cor pulmonale, degenerative cervical disc disease, morbid obesity, and patient has a solitary pulmonary nodule of 1.6 cm in the right middle lobe which is under surveillance by Dr. Harvey. Patient does have a remote history of smoking, quit 22 years ago, she did smoke less than a pack a day for about 10 years. Outpatient PFT showed a restrictive pulmonary defect, with FEV1 of 1.44 L or 57% of predicted, an FVC of 1.84 L or 57% of predicted and FEV1 to FVC ratio is 101% of predicted, with a diffusion capacity of 67% of predicted. Patient presented to the emergency department on 08/02/2019 with complaints of cough, dyspnea, production of greenish and yellowish sputum, no complaint of chest pain, patient has on and off chronic swelling of lower extremities, and her legs are not any more swollen than usual, no nausea, vomiting or diarrhea. Chest x-ray showed cardiomegaly, and pulmonary arterial hypertension, labs showed white blood cell count of 20.6, hemoglobin 13.5, d-dimer was 0.69, sodium was 140, potassium is 5.2, renal profile is within normal limits, troponins were negative 3, proBNP was within normal limits at 242. Urinalysis showed 1+ ketones and 4+ glucose, but no evidence of infection. Patient has been afebrile, hemodynamically stable, she is currently at 3 L of oxygen with a pulse ox of 93%. Chest CTA has been completed showing no evidence of acute pulmonary embolism, and mild pulmonary arterial hypertension, and anterior abdominal wall hernia containing nonobstructed loop of colon. Review of Systems All systems: negative Constitutional: Denies chills, Denies fever Eyes: denies blurred vision, denies pain Ears, nose, mouth and throat: Denies headache, Denies sore throat Cardiovascular: Denies chest pain, Denies shortness of breath Respiratory: Reports congestion, Reports cough with sputum, Reports dyspnea, Reports home oxygen, Denies cough Gastrointestinal: Denies abdominal pain, Denies diarrhea, Denies nausea, Denies vomiting Genitourinary: Denies dysuria, Denies hematuria Musculoskeletal: Denies myalgias Integumentary: Denies pruritus, Denies rash Neurological: Denies numbness, Denies weakness Psychiatric: Denies anxiety, Denies depression Endocrine: Denies fatigue, Denies weight change Past Medical History Past Medical History: Diabetes Mellitus Additional Past Medical History / Comment(s): pulmonary hypertension. CHF. History of Any Multi-Drug Resistant Organisms: None Reported Past Surgical History: Hysterectomy, Orthopedic Surgery Additional Past Surgical History / Comment(s): pancreatic tumor - gallbladder and spleen. melanoma cx on arm and leg. BL knee scope Smoking Status: Former smoker Medications and Allergies Home Medications Medication Instructions Recorded Confirmed Type ALPRAZolam [Xanax] 0.25 mg PO Q6H PRN 08/02/19 08/02/19 History Citalopram Hydrobromide [CeleXA] 40 mg PO HS 08/02/19 08/02/19 History HYDROcodone/APAP 7.5-325MG [Slade 1 tab PO HS PRN 08/02/19 08/02/19 History 7.5-325] Insulin Aspart Protam & Aspart 40 unit SQ AC-BRKFST 08/02/19 08/02/19 History [NovoLOG MIX 70-30 Flexpen] Insulin Aspart Protam & Aspart 60 unit SQ AC-SUPPER 08/02/19 08/02/19 History [NovoLOG MIX 70-30 Flexpen] Losartan Potassium [Cozaar] 100 mg PO HS 08/02/19 08/02/19 History Omeprazole 20 mg PO HS 08/02/19 08/02/19 History Simvastatin [Zocor] 40 mg PO HS 08/02/19 08/02/19 History Tadalafil 40 mg PO HS 08/02/19 08/02/19 History Tobramycin [Tobrex 0.3% Ophth Soln] 1 drop BOTH EYES QID 08/02/19 08/02/19 History amLODIPine [Norvasc] 2.5 mg PO HS 08/02/19 08/02/19 History metFORMIN HCL [Glucophage] 500 mg PO DAILY 08/02/19 08/02/19 History tiZANidine [Zanaflex] 4 mg PO BID PRN 08/02/19 08/02/19 History Allergies Allergy/AdvReac Type Severity Reaction Status Date / Time cefaclor [From Ceclor] Allergy Dyspnea Verified 08/02/19 13:23 sulfamethoxazole Allergy Rash/Hives Verified 08/02/19 13:23 [From Bactrim] trimethoprim [From Bactrim] Allergy Rash/Hives Verified 08/02/19 13:23 Physical Exam Vitals: Vital Signs Temp Pulse Pulse Resp BP BP Pulse Ox 08/03/19 12:00 77 16 142/71 93 L 08/03/19 11:59 86 08/03/19 11:50 16 08/03/19 11:47 84 08/03/19 08:19 88 08/03/19 08:03 84 08/03/19 08:00 97.8 F 80 16 128/65 90 L 08/03/19 04:00 97.8 F 71 20 143/77 92 L 08/03/19 00:00 98.4 F 77 20 143/81 93 L 08/02/19 22:26 98 08/02/19 21:33 98 18 116/62 92 L 08/02/19 19:47 90 16 08/02/19 18:32 99.3 F 80 22 142/87 97 08/02/19 18:30 82 18 162/79 93 L 08/02/19 18:00 84 23 148/84 91 L 08/02/19 17:30 80 22 145/90 90 L 08/02/19 17:00 78 18 91 L 08/02/19 16:30 19 138/69 08/02/19 16:00 80 21 133/79 90 L 08/02/19 15:34 82 18 133/79 92 L 08/02/19 15:30 85 18 89 L 08/02/19 15:00 84 16 165/89 91 L 08/02/19 14:30 89 26 H 165/89 93 L 08/02/19 14:19 82 18 Intake and Output 08/02/19 08/03/19 08/03/19 22:59 06:59 14:59 Intake Total 120 240 Output Total 600 Balance 120 -360 Intake: Oral 120 240 Output: Urine 600 Other: Voiding Method Toilet Toilet # Voids 1 2 Weight 129.7 kg GENERAL EXAM: Alert, pleasant, 63-year-old white female, on 3 L of oxygen with a pulse ox of 93%, comfortable in no apparent distress. HEAD: Normocephalic/atraumatic. EYES: Normal reaction of pupils, equal size. Conjunctiva pink, sclera white. NOSE: Clear with pink turbinates. THROAT: No erythema or exudates. NECK: No masses, no JVD, no thyroid enlargement, no adenopathy. CHEST: No chest wall deformity. Symmetrical expansion. LUNGS: Equal air entry with no crackles, wheeze, rhonchi or dullness. CVS: Regular rate and rhythm, normal S1 and S2, no gallops, no murmurs, no rubs ABDOMEN: Soft, nontender. No hepatosplenomegaly, normal bowel sounds, no guarding or rigidity. EXTREMITIES: No clubbing, trace lower extremity edema, no cyanosis, 2+ pulses and upper and lower extremities. MUSCULOSKELETAL: Muscle strength and tone normal. SPINE: No scoliosis or deformity SKIN: No rashes CENTRAL NERVOUS SYSTEM: Alert and oriented -3. No focal deficits, tone is normal in all 4 extremities. PSYCHIATRIC: Alert and oriented -3. Appropriate affect. Intact judgment and insight. Results - Laboratory Findings CBC and BMP: 08/03/19 06:51 08/03/19 06:51 PT/INR, D-dimer PT 10.3 sec (9.0-12.0) 08/02/19 14:28 INR 1.0 (<1.2) 08/02/19 14:28 D-Dimer 0.69 mg/L FEU (<0.60) H 08/02/19 14:28 Abnormal lab findings: Abnormal Labs 08/02/19 08/02/19 08/02/19 14:28 14:28 14:28 WBC 20.6 H MCHC RDW 15.6 H Neutrophils # 15.6 H Monocytes # 1.1 H D-Dimer 0.69 H Potassium 5.2 H Creatinine 0.51 L Glucose 189 H POC Glucose (mg/dL) Total Creatine Kinase CK-MB (CK-2) Urine Glucose (UA) Urine Ketones 08/02/19 08/02/19 08/03/19 15:20 18:58 06:43 WBC MCHC RDW Neutrophils # Monocytes # D-Dimer Potassium Creatinine Glucose POC Glucose (mg/dL) 234 H 223 H Total Creatine Kinase CK-MB (CK-2) Urine Glucose (UA) 4+ H Urine Ketones 1+ H 08/03/19 08/03/19 08/03/19 06:51 06:51 11:32 WBC 18.2 H MCHC 30.5 L RDW 15.8 H Neutrophils # 14.6 H Monocytes # D-Dimer Potassium Creatinine Glucose 227 H POC Glucose (mg/dL) 290 H Total Creatine Kinase CK-MB (CK-2) Urine Glucose (UA) Urine Ketones 08/03/19 12:38 WBC MCHC RDW Neutrophils # Monocytes # D-Dimer Potassium Creatinine Glucose POC Glucose (mg/dL) Total Creatine Kinase 278 H CK-MB (CK-2) 2.7 H Urine Glucose (UA) Urine Ketones - Diagnostic Findings Chest x-ray: report reviewed, image reviewed CT scan - chest: report reviewed, image reviewed Assessment and Plan Plan: Assessment: #1. Dyspnea likely related to acute tracheobronchitis and the possibility of mild congestive heart failure with previously diastolic dysfunction #2. Chronic hypoxemic respiratory failure related to history of pulmonary hypertension, patient follows at the [facility] pulmonary hypertension clinic, and is currently on tadalafil #3. Obstructive sleep apnea on CPAP therapy #4. Diabetes mellitus type 2 #5. Morbid obesity #6. Hypertension #7. Hyperlipidemia #8. History of chronic congestive heart failure with diastolic dysfunction, and cor pulmonale #9. Generative cervical disc disease #10. Solitary lung nodule in the right middle lobe under surveillance #11. Previous history of pneumonia #12. Remote history of smoking, 10 years less than a pack a day Plan: Continue current medical treatment, continue nebulized bronchodilators, antibiotics, and IV steroids, patient is receiving IV Lasix, cardiology is following, echocardiogram is pending. Denies any chest pain, denies any acute distress, no fever or chills, collected sputum specimen, we'll continue to follow I performed a history & physical examination of the patient and discussed their management with my nurse practitioner, Crystal Jacobs. I reviewed the nurse practitioner's note and agree with the documented findings and plan of care. Lung sounds are positive for diminished breath sounds with bibasilar crackles.. The findings and the impression was discussed with the patient. I attest to the documentation by the nurse practitioner. Time with Patient: Greater than 30
[2019-08-03 16:44] LABS: Glucose,Whole Blood 365 mg/dL (75-99)
--- NOTE | 2019-08-03 17:48 | ECHOF ---
Referral Reason:sob MEASUREMENTS -------- HEIGHT: 162.6 cm WEIGHT: 129.3 kg BP: 128/65 RVIDd: 3.6 cm (< 3.3) IVSd: 1.6 cm (0.6 - 1.1) LVIDd: 4.7 cm (3.9 - 5.3) LVPWd: 1.8 cm (0.6 - 1.1) IVSs: 2.1 cm LVIDs: 2.8 cm LVPWs: 2.1 cm LAESV Index (A-L): 28.67 ml/m Ao Diam: 3.3 cm (2.0 - 3.7) AV Cusp: 2.5 cm (1.5 - 2.6) LA Diam: 4.0 cm (2.7 - 3.8) MV EXCURSION: 17.961 mm (> 18.000) MV EF SLOPE: 56 mm/s (70 - 150) EPSS: 1.1 cm MV E Fredy: 1.07 m/s MV DecT: 233 ms MV A Fredy: 0.95 m/s MV E/A Ratio: 1.14 RAP: 5.00 mmHg RVSP: 58.58 mmHg TAPSE: 34.27 mm FINDINGS -------- Sinus rhythm. This was a technically difficult study with suboptimal views. The left ventricular size is normal. There is severe concentric left ventricular hypertrophy. Ove rall left ventricular systolic function is normal with, an EF between 55 - 60 %. Normal LAP Grade 1 Diastolic Dysfunction. The right ventricle is mildly enlarged. The left atrial size is normal. Normal LA size by volume 22+/-6 ml/m2. The right atrial size is normal. Lumason used The aortic valve is trileaflet and appears structurally normal. The mitral valve is normal. There is trace mitral regurgitation. The tricuspid valve appears structurally normal. Mild tricuspid regurgitation present. There is m oderate to severe pulmonary hypertension. The right ventricular systolic pressure, as measured by Amie wetzel, is 58.58mmHg. There is no pulmonic regurgitation present. The aortic root size is normal. IVC Not well visulized. There is no pericardial effusion. CONCLUSIONS -------- 1. Sinus rhythm. 2. This was a technically difficult study with suboptimal views. 3. The left ventricular size is normal. 4. There is severe concentric left ventricular hypertrophy. 5. Overall left ventricular systolic function is normal with, an EF between 55 - 60 %. 6. Normal LAP Grade 1 Diastolic Dysfunction. 7. The right ventricle is mildly enlarged. 8. The left atrial size is normal. 9. Normal LA size by volume 22+/-6 ml/m2. 10. The right atrial size is normal. 11. Lumason used 12. The aortic valve is trileaflet and appears structurally normal. 13. The mitral valve is normal. 14. There is trace mitral regurgitation. 15. The tricuspid valve appears structurally normal. 16. Mild tricuspid regurgitation present. 17. There is moderate to severe pulmonary hypertension. 18. The right ventricular systolic pressure, as measured by Doppler, is 58.58mmHg. 19. There is no pulmonic regurgitation present. 20. The aortic root size is normal. 21. IVC Not well visulized. 22. There is no pericardial effusion. JUNIOR ANALYST: Fatemeh Gutiérrez RDCS
[2019-08-03 20:29] LABS: Glucose,Whole Blood 262 mg/dL (75-99)
[2019-08-03] MEDS: ATORVASTATIN 20 MG TAB PO SCH (20:42)
[2019-08-03] MEDS: ALPRAZolam 0.25 MG TAB PO PRN (20:42)
[2019-08-03] MEDS: metFORMIN 500 MG TAB PO SCH (20:42)
[2019-08-03] MEDS: LOSARTAN 50 MG TAB PO SCH (20:42)
[2019-08-03] MEDS: methylPREDNISolone SOD SUCCI 40 MG/ML 1 ML VIAL IV SCH (20:43)
[2019-08-04 04:35] VITALS: BP 141/76
[2019-08-04 06:50] LABS: Glucose,Whole Blood 168 mg/dL (75-99)
[2019-08-04] MEDS: INSULIN ASPART (NovoLOG) 100 UNIT/ML VIAL SQ SCH (07:00)
[2019-08-04] MEDS: INSULN ASP PRT/INSULIN ASPART 100 UNIT/ML 10 ML VIAL SQ SCH (07:00)
[2019-08-04 07:17] LABS: Basophils # (A) 0.1 k/uL (0-0.2); Basophils % (A) 1 %; Eosinophils # (A) 0.1 k/uL (0-0.7); Eosinophils % (A) 1 %; HCT 41.4 % (34.0-46.0); Hypochromasia Slight; Lymphocytes # (A) 4.7 k/uL (1.0-4.8); Lymphocytes % (A) 22 %; MCH 27.9 pg (25.0-35.0); MCHC 31.4 g/dL (31.0-37.0); MCV 88.9 fL (80.0-100.0); Mean Platelet Volume 6.2; Monocytes # (A) 1.6 k/uL (0-1.0); Monocytes % (A) 7 %; Neutrophils # (A) 14.2 k/uL (1.3-7.7); Neutrophils % (A) 67 %; Platelet Count 435 k/uL (150-450); RBC 4.65 m/uL (3.80-5.40); RDW 15.4 % (11.5-15.5); WBC 21.2 k/uL (3.8-10.6)
[2019-08-04] MEDS: METOPROLOL TARTRATE 25 MG TAB PO SCH (08:33)
[2019-08-04] MEDS: FUROSEMIDE 10 MG/ML 4 ML VIAL IV SCH (08:34)
[2019-08-04] MEDS: CITALOPRAM HYDROBROMIDE 20 MG TAB PO SCH (08:34)
[2019-08-04] MEDS: LEVOFLOXACIN 500 MG TAB PO SCH (08:34)
[2019-08-04] MEDS: methylPREDNISolone SOD SUCCI 40 MG/ML 1 ML VIAL IV SCH (08:34)
[2019-08-04 08:42] VITALS: RESP 16; TEMP 97.7
[2019-08-04] MEDS: IPRATROPIUM-ALBUTEROL 3 ML NEB INHALATION SCH ×2 (09:35→10:49)
[2019-08-04] MEDS ORDERED: guaiFENesin-DM 100-10MG/5ML 10 ML CUP PO PRN (10:34)
[2019-08-04] MEDS ORDERED: predniSONE 10 MG TAB PO STA (10:35)
[2019-08-04 11:02] VITALS: PULSE 88
[2019-08-04 11:57] LABS: Glucose,Whole Blood 135 mg/dL (75-99)
--- NOTE | 2019-08-04 12:22 | P.PN ---
Subjective Progress Note Date: 08/04/19 Principal diagnosis: Tracheobronchitis This is a 63-year-old white female patient of Dr. Harvey, with past medical history of diabetes mellitus type 2, hypertension, severe pulmonary hypertension for which the patient on tadalafil and she follows at the [facility] pulmonary hypertension clinic, home oxygen, obstructive sleep apnea on CPAP, cor pulmonale, degenerative cervical disc disease, morbid obesity, and patient has a solitary pulmonary nodule of 1.6 cm in the right middle lobe which is under surveillance by Dr. Harvey. Patient does have a remote history of smoking, quit 22 years ago, she did smoke less than a pack a day for about 10 years. Outpatient PFT showed a restrictive pulmonary defect, with FEV1 of 1.44 L or 57% of predicted, an FVC of 1.84 L or 57% of predicted and FEV1 to FVC ratio is 101% of predicted, with a diffusion capacity of 67% of predicted. Patient presented to the emergency department on 08/02/2019 with complaints of cough, dyspnea, production of greenish and yellowish sputum, no complaint of chest pain, patient has on and off chronic swelling of lower extremities, and her legs are not any more swollen than usual, no nausea, vomiting or diarrhea. Chest x-ray showed cardiomegaly, and pulmonary arterial hypertension, labs showed white blood cell count of 20.6, hemoglobin 13.5, d-dimer was 0.69, sodium was 140, potassium is 5.2, renal profile is within normal limits, troponins were negative 3, proBNP was within normal limits at 242. Urinalysis showed 1+ ketones and 4+ glucose, but no evidence of infection. Patient has been afebrile, hemodynamically stable, she is currently at 3 L of oxygen with a pulse ox of 93%. Chest CTA has been completed showing no evidence of acute pulmonary embolism, and mild pulmonary arterial hypertension, and anterior abdominal wall hernia containing nonobstructed loop of colon. On 08/04/2019 patient seen in follow-up on selective care unit, she sit up on the edge of the bed, she states she is breathing easier, still has some cough, and production of yellowish colored sputum, but overall she states she is improving, no acute events overnight, she was actually able to sleep last night. She has her CPAP device from home, which she wore last night. No other acute issues, vital signs are stable, no complaint of chest pain, no hemoptysis, she is on 2 L of oxygen with a pulse ox of 92%. Echocardiogram showed preserved systolic function, with EF of 55-60%, mild tricuspid regurg, moderate to severe pulmonary hypertension with PA systolic of 58.5 mmHg. No increased swelling in lower extremities, and patient should be able to go home today Objective - Vital Signs Vital signs: Vital Signs Temp 97.7 F 08/04/19 08:00 Pulse 88 08/04/19 11:01 Resp 16 08/04/19 08:00 BP 141/76 08/04/19 04:00 Pulse Ox 92 L 08/04/19 08:00 Intake & Output 08/03/19 08/04/19 08/04/19 18:59 06:59 18:59 Intake Total 480 444 240 Output Total 600 Balance -120 444 240 Weight 129.6 kg Intake: Oral 480 444 240 Output: Urine 600 Other: Voiding Method Toilet Toilet Toilet # Voids 2 2 1 - Exam GENERAL EXAM: Alert, pleasant, 63-year-old white female, on 3 L of oxygen with a pulse ox of 93%, comfortable in no apparent distress. HEAD: Normocephalic/atraumatic. EYES: Normal reaction of pupils, equal size. Conjunctiva pink, sclera white. NOSE: Clear with pink turbinates. THROAT: No erythema or exudates. NECK: No masses, no JVD, no thyroid enlargement, no adenopathy. CHEST: No chest wall deformity. Symmetrical expansion. LUNGS: Equal air entry with no crackles, wheeze, rhonchi or dullness. CVS: Regular rate and rhythm, normal S1 and S2, no gallops, no murmurs, no rubs ABDOMEN: Soft, nontender. No hepatosplenomegaly, normal bowel sounds, no guarding or rigidity. EXTREMITIES: No clubbing, trace lower extremity edema, no cyanosis, 2+ pulses and upper and lower extremities. MUSCULOSKELETAL: Muscle strength and tone normal. SPINE: No scoliosis or deformity SKIN: No rashes CENTRAL NERVOUS SYSTEM: Alert and oriented -3. No focal deficits, tone is normal in all 4 extremities. PSYCHIATRIC: Alert and oriented -3. Appropriate affect. Intact judgment and insight. - Labs CBC & Chem 7: 08/04/19 06:54 08/03/19 06:51 Labs: Abnormal Lab Results - Last 24 Hours (Table) 08/03/19 08/03/19 08/03/19 Range/Units 12:38 16:38 20:28 WBC (3.8-10.6) k/uL Neutrophils # (1.3-7.7) k/uL Monocytes # (0-1.0) k/uL POC Glucose (mg/dL) 365 H 262 H (75-99) mg/dL Total Creatine Kinase 278 H (30-135) U/L CK-MB (CK-2) 2.7 H (0.0-2.4) ng/mL 08/04/19 08/04/19 08/04/19 Range/Units 06:48 06:54 11:54 WBC 21.2 H (3.8-10.6) k/uL Neutrophils # 14.2 H (1.3-7.7) k/uL Monocytes # 1.6 H (0-1.0) k/uL POC Glucose (mg/dL) 168 H 135 H (75-99) mg/dL Total Creatine Kinase (30-135) U/L CK-MB (CK-2) (0.0-2.4) ng/mL Microbiology - Last 24 Hours (Table) 08/02/19 14:28 Blood Culture - Preliminary Blood No Growth after 24 hours Assessment and Plan Plan: Assessment: #1. Dyspnea likely related to acute tracheobronchitis and the possibility of mild congestive heart failure with previously diastolic dysfunction #2. Chronic hypoxemic respiratory failure related to history of pulmonary hypertension, patient follows at the [facility] pulmonary hypertension clinic, and is currently on tadalafil #3. Obstructive sleep apnea on CPAP therapy #4. Diabetes mellitus type 2 #5. Morbid obesity #6. Hypertension #7. Hyperlipidemia #8. History of chronic congestive heart failure with diastolic dysfunction, and cor pulmonale #9. Generative cervical disc disease #10. Solitary lung nodule in the right middle lobe under surveillance #11. Previous history of pneumonia #12. Remote history of smoking, 10 years less than a pack a day Plan: Patient is breathing easier, she is improving, although still has residual cough, and she is producing some yellowish colored sputum, which was sent for culture, she has been treated with antibiotics and steroids, from pulmonary perspective patient is stable for discharge home today on the course of oral antibiotics and steroids. Follow-up with Dr. Harvey in the office in one or 2 weeks I performed a history & physical examination of the patient and discussed their management with my nurse practitioner, Crystal Jacobs. I reviewed the nurse practitioner's note and agree with the documented findings and plan of care. Lung sounds are positive for diminished breath sounds with bibasilar crackles.. The findings and the impression was discussed with the patient. I attest to the documentation by the nurse practitioner. Time with Patient: Less than 30
--- NOTE | 2019-08-04 13:27 | P.PN ---
Subjective Progress Note Date: 08/04/19 This is a 63-year-old female with history of diabetes, hypertension, hyperlipidemia, pulmonary hypertension for which she follows with Dr. Cunha at [facility], obesity, sleep apnea, presented to the hospital with symptoms of 3 day duration of progressively worsening shortness of breath. Patient also states that along with the shortness of breath, her chest felt tight, she had been coughing, green to yellowish sputum. Denies any fever at home. Chest x-ray on presentation here showed stable abnormal findings, pulmonary arterial hypertension. A CTA of the chest was performed because of mildly abnormal d-dimer, no acute pulmonary embolism noted, pulmonary arterial hypertension noted. Her EKG on presentation here showed a normal sinus rhythm with ST-T wave changes noted in the inferior anterior and lateral leads, corrected prolonged QT measuring 505. White blood cell count 20.6 on admission, 18.2 this morning, white blood cell count 13.8, platelet count 440. D-dimer 0.69. Sodium 140, potassium 5.2 on admission, 4.7 this morning, BUN 11 and creatinine 0.5. Troponins negative 2. BNP 242. Blood pressure 128/64 with a heart rate in the 80s, 90% on 3 L of oxygen. 08/04/2019 A shunt was seen and examined this morning, overall feels significantly better. Still has some shortness of breath, however significantly improved and almost back to baseline according to the patient. We will discontinue her IV Lasix and put the patient on Lasix 40 mg one tab by mouth twice a day. From our perspective she may be able to be discharged home with the recommendation to follow-up with her green hide inspector at [facility]. Objective - Vital Signs Vital signs: Vital Signs Temp 97.7 F 08/04/19 08:00 Pulse 88 08/04/19 11:01 Resp 16 08/04/19 08:00 BP 141/76 08/04/19 04:00 Pulse Ox 92 L 08/04/19 08:00 Intake & Output 08/03/19 08/04/19 08/04/19 18:59 06:59 18:59 Intake Total 480 444 240 Output Total 600 Balance -120 444 240 Weight 129.6 kg Intake: Oral 480 444 240 Output: Urine 600 Other: Voiding Method Toilet Toilet Toilet # Voids 2 2 1 - Exam PHYSICAL EXAMINATION: GENERAL: 63-year-old female in no acute distress at the time of my examination HEENT: Head is atraumatic, normocephalic. Pupils equal, round. Sclera anicteric. Conjunctiva are clear. Mucous membranes of the mouth are moist. Neck is supple. There is elevated jugular venous pressure. No carotid bruit is heard. HEART EXAMINATION: Heart S1, S2 normal. No murmur or gallop heard. CHEST EXAMINATION: Lungs reveal improvement in air exchange and improvement in air entry to the bases ABDOMEN: Soft, obese, nontender. Bowel sounds are heard. No organomegaly noted. EXTREMITIES: 2+ peripheral pulses with trace evidence of peripheral edema and no calf tenderness noted. NEUROLOGIC patient is awake, alert and oriented 3 . - Labs CBC & Chem 7: 08/04/19 06:54 08/03/19 06:51 Labs: Abnormal Lab Results - Last 24 Hours (Table) 08/03/19 08/03/19 08/03/19 Range/Units 12:38 16:38 20:28 WBC (3.8-10.6) k/uL Neutrophils # (1.3-7.7) k/uL Monocytes # (0-1.0) k/uL POC Glucose (mg/dL) 365 H 262 H (75-99) mg/dL Total Creatine Kinase 278 H (30-135) U/L CK-MB (CK-2) 2.7 H (0.0-2.4) ng/mL 08/04/19 08/04/19 08/04/19 Range/Units 06:48 06:54 11:54 WBC 21.2 H (3.8-10.6) k/uL Neutrophils # 14.2 H (1.3-7.7) k/uL Monocytes # 1.6 H (0-1.0) k/uL POC Glucose (mg/dL) 168 H 135 H (75-99) mg/dL Total Creatine Kinase (30-135) U/L CK-MB (CK-2) (0.0-2.4) ng/mL Microbiology - Last 24 Hours (Table) 08/02/19 14:28 Blood Culture - Preliminary Blood No Growth after 24 hours Assessment and Plan Plan: Assessment and plan #1 symptoms of progressively worsening shortness of breath over a 2-3 day duration. Possible tracheobronchitis with mild congestive heart failure acute on chronic, LV function unknown. BNP level CCXLII on admission, it is known that patients with obesity can reflect a low BNP level with the presence of congestive heart failure. #2 pulmonary hypertension, patient follows at [facility], on tadalafil as an outpatient. #3 diabetes #4 hypertension #5 hyperlipidemia #6 obesity #7 sleep apnea Plan Echocardiogram with Doppler study was performed which revealed a normal left ventricular systolic function. We will discontinue the IV Lasix and put the patient on 40 mg of oral diuretics twice a day. From our perspective she may be able to be discharged home to follow-up with her green hide inspector at [facility]. DNP note has been reviewed, I agree with a documented findings and plan of care. Patient was seen and examined.
--- NOTE | 2019-08-04 20:08 | P.DS ---
Providers Date of admission: 08/02/19 16:05 Attending physician: Oliver Jimenez MD Consults: 08/02/19 14:21 Consult Physician Urgent Consulting Provider: Deisy Robertson Consult Reason/Comments: acute dyspnea Do you want consulting provider notified?: Yes Consult Physician Urgent Consulting Provider: Trinidad Jackson Consult Reason/Comments: EKG changes Do you want consulting provider notified?: Yes Primary care physician: Deisy Robertson Hospital Course: Diagnoses: acute dyspnea , secondary to acute tracheobronchitis Mild acute on chronic diastolic congestive heart failure elevated D-Dimer , CTA of the chest is negative for pulmonary embolism ST depression in the anterolateral leads leukocytosis , secondary to her infection and steroids. Bilateral leg edema, improving pulmonary hypertension Type II Diabetes mellitus Chronic congestive heart failure Chronic pulmonary hypertension Obesity hospital course: This is a pleasant 63 years old female with past medical history of pulmonary hypertension, diabetes mellitus, congestive heart failure. Presents because of dyspnea with chest tightness of one-day duration that started when day earlier to admission. Also patient is complaining of from cough with green yellow phlegm. She denies chest pain. Also patient has bilateral leg edema. Her CTA of the chest showing no pulmonary embolism and mild pulmonary artery hypertension, CXR: pulmonary Hypertension Patient was treated with steroids, breathing treatments and bronchodilator, oral antibiotics. Patient showed interval improvement and her breathing is significantly improved. The of discharge her pain dyspnea significantly improved, no chest pain, still have some cough and she'll be discharged on Robitussin-DM, no abdominal pain, no change in urine or bowel habits. Gait is normal. No fever. Patient will be discharged to short course of oral antibiotics and tapered dose of steroids as well as bronchodilator and diuretic as lasix. DC Norvasc for leg edema, and increase metoprolol 25 mg twice daily. And she is on insulin 70:30 at 60 units p.m. and 40 units a.m. Patient is cleared for discharge by cardiology and pulmonary team Problems and management plan were discussed with the patient and he verbalized understanding and acceptance Patient was found stable and can be discharged home however he needs follow-up as an outpatient. Patient was instructed to follow up with PCP within one week and patient agrees. pt agrees with pulmonary/pcp appointment and timing and states she will follow up Gen: patient is a AAOx3, no distress CVS: S1-S2, RRR, no murmur Lungs: B/L CTA, no wheezing Abdomen: soft, no distention, no tenderness, positive bowel sounds Extremity: no leg edema or induration Time spent more than 35 minutes Plan - Discharge Summary New Discharge Prescriptions: New Levofloxacin [Levaquin] 500 mg PO DAILY #5 tab Metoprolol Tartrate [Lopressor] 25 mg PO BID #60 tab predniSONE 10 mg PO DIRECTED #15 tab guaiFENesin-DM 100-10MG/5ML [Robitussin DM] 10 ml PO Q6H PRN #1 bottle PRN Reason: Cough Albuterol Inhaler [Ventolin Hfa Inhaler] 1 - 2 puff INHALATION RT-Q6H PRN #1 inhaler PRN Reason: Shortness Of Breath Or Wheezing Furosemide [Lasix] 40 mg PO 0900,1600 #60 tablet Continue HYDROcodone/APAP 7.5-325MG [[place] 7.5-325] 1 tab PO HS PRN PRN Reason: Pain Tobramycin [Tobrex 0.3% Ophth Soln] 1 drop BOTH EYES QID Tadalafil 40 mg PO HS Omeprazole 20 mg PO HS Simvastatin [Zocor] 40 mg PO HS Citalopram Hydrobromide [CeleXA] 40 mg PO HS ALPRAZolam [Xanax] 0.25 mg PO Q6H PRN PRN Reason: Anxiety Losartan Potassium [Cozaar] 100 mg PO HS Insulin Aspart Protam & Aspart [NovoLOG MIX 70-30 Flexpen] 40 unit SQ AC- BRKFST Insulin Aspart Protam & Aspart [NovoLOG MIX 70-30 Flexpen] 60 unit SQ AC- SUPPER metFORMIN HCL [Glucophage] 500 mg PO DAILY Discontinued tiZANidine [Zanaflex] 4 mg PO BID PRN PRN Reason: Muscle Spasm amLODIPine [Norvasc] 2.5 mg PO HS Discharge Medication List ALPRAZolam [Xanax] 0.25 mg PO Q6H PRN 08/02/19 [History] Citalopram Hydrobromide [CeleXA] 40 mg PO HS 08/02/19 [History] HYDROcodone/APAP 7.5-325MG [[place] 7.5-325] 1 tab PO HS PRN 08/02/19 [History] Insulin Aspart Protam & Aspart [NovoLOG MIX 70-30 Flexpen] 40 unit SQ AC-BRKFST 08/02/19 [History] Insulin Aspart Protam & Aspart [NovoLOG MIX 70-30 Flexpen] 60 unit SQ AC-SUPPER 08/02/19 [History] Losartan Potassium [Cozaar] 100 mg PO HS 08/02/19 [History] Omeprazole 20 mg PO HS 08/02/19 [History] Simvastatin [Zocor] 40 mg PO HS 08/02/19 [History] Tadalafil 40 mg PO HS 08/02/19 [History] Tobramycin [Tobrex 0.3% [facility] Soln] 1 drop BOTH EYES QID 08/02/19 [History] metFORMIN HCL [Glucophage] 500 mg PO DAILY 08/02/19 [History] Albuterol Inhaler [Ventolin Hfa Inhaler] 1 - 2 puff INHALATION RT-Q6H PRN #1 inhaler 08/04/19 [Rx] Furosemide [Lasix] 40 mg PO 0900,1600 #60 tablet 08/04/19 [Rx] Levofloxacin [Levaquin] 500 mg PO DAILY #5 tab 08/04/19 [Rx] Metoprolol Tartrate [Lopressor] 25 mg PO BID #60 tab 08/04/19 [Rx] guaiFENesin-DM 100-10MG/5ML [Robitussin DM] 10 ml PO Q6H PRN #1 bottle 08/04/19 [Rx] predniSONE 10 mg PO DIRECTED #15 tab 08/04/19 [Rx] Follow up Appointment(s)/Referral(s): Cardiology, [Other] - 1 Week (Please follow up with your metal flow coordinator) Deisy Robertson MD [Primary Care Provider] - 08/18/19 3:15 pm (Friday with Renate Leos) Patient Instructions/Handouts: COPD (Chronic Obstructive Pulmonary Disease) (DC) Discharge Disposition: HOME SELF-CARE
== END 2019-08-04 13:17 | disposition home or self-care (01) | DRG 202 ==
LOC: EC 12:45 → 3SCARD 16:05
PROVIDERS: ADMIT Internal Medicine; ATTEND Internal Medicine
PROC: 5A09357 Assistance with Respiratory Ventilation, Less than 24 Consecutive Hours, Continuous Positive Airway Pressure (ICD-10-PCS; principal; 2019-08-03)
DX: J20.9 Acute bronchitis, unspecified (principal); I50.33 Acute on chronic diastolic (congestive) heart failure; Z68.42 Body mass index [BMI] 45.0-49.9, adult; J96.11 Chronic respiratory failure with hypoxia; I27.21 Secondary pulmonary arterial hypertension; E66.01 Morbid (severe) obesity due to excess calories; I27.81 Cor pulmonale (chronic); I07.1 Rheumatic tricuspid insufficiency; I11.0 Hypertensive heart disease with heart failure; M50.90 Cervical disc disorder, unspecified, unspecified cervical region; E78.5 Hyperlipidemia, unspecified; G47.33 Obstructive sleep apnea (adult) (pediatric); E11.9 Type 2 diabetes mellitus without complications; R91.1 Solitary pulmonary nodule; Z99.81 Dependence on supplemental oxygen; Z79.4 Long term (current) use of insulin; Z79.899 Other long term (current) drug therapy; Z87.891 Personal history of nicotine dependence; Z90.710 Acquired absence of both cervix and uterus; Z85.820 Personal history of malignant melanoma of skin; Z87.01 Personal history of pneumonia (recurrent); Z90.411 Acquired partial absence of pancreas; Z99.89 Dependence on other enabling machines and devices; Z88.1 Allergy status to other antibiotic agents; Z88.2 Allergy status to sulfonamides
CPT/HCPCS: 36415; 71046; 71275; 80048; 80053; 81003; 82550; 82553; 83605; 83880; 84484; 85025; 85379; 85610; 85730; 87040; 87070; 87205; 93005; 93306; 94640; 96374; 99285

== ENCOUNTER → 2019-12-06 | Outpatient (CLI) | payer BC ==
--- NOTE | 2019-12-07 10:27 | BD ---
EXAMINATION TYPE: Axial Bone Density DATE OF EXAM: 12/06/2019 COMPARISON: 2013 CLINICAL HISTORY: N 95.1 Height: 5 FT 3 1/2 IN Weight: 289 FRAX RISK QUESTIONS: Alcohol (3 or more units per day): NO Family History (Parent hip fracture): NO Glucocorticoids (More than 3mos): NO (Ex: prednisone, prednisolone, methylprednisolone, dexamethasone, and hydrocortisone). History of Fracture in Adulthood: NO Secondary Osteoporosis: 1. Type 1 Diabetes: NO 2. Hyperthyroidism: NO 3. Menopause before 45: YES 4. Malnutrition: NO 5. Chronic liver disease: NO Rheumatoid Arthritis: NO Current Tobacco Use: NO RISK FACTORS HISTORY OF: Active: SOMEWHAT Postmenopausal woman: TOTAL HYST AGE 41 Take estrogen and/or progesterone medications: TOOK HRT FOR ONE YEAR AFTER HYST Poor Health: FAIR MEDICATIONS: Additional Medications: METFORMIN, LASIX, NORCO, OMEPRAZOLE, KOZAR, ZOCOR, NORVASC, XANAX, CELEXA, NO VALOG, POTASSIUM , Additional History: PULMONARY HYPERTENSION EXAM MEASUREMENTS: Bone mineral densitometry was performed using the [employer] System. Bone mineral density as measured about the Lumbar spine is: ----- L1-L4(G/cm2): 1.175 T Score Values are as follows: ----- L2: -0.8 ----- L3: -0.5 ----- L4: 0.4 ----- L1-L4: 0.0 Bone mineral density has: DECREASED -8.7 % since study of: 2013 Bone mineral density about the R hip (g/cm2): 0.972 Bone mineral density about the L hip (g/cm2): 0.914 T Score values are as follows: -----R Neck: -0.5 -----L Neck: -0.9 -----R Total: 0.7 -----L Total: 0.4 Bone mineral density has: DECREASED -7.7 % since study of: 2013 IMPRESSION: Normal (Values between +1 and -1 indicate normal bone mass). Consider repeating this study in 5 year s or sooner if there is some new clinical indication. NOTE: T-SCORE=SD OF THE YOUNG ADULT MEAN.
--- NOTE | 2019-12-07 11:34 | MM ---
Reason for exam: screening (asymptomatic). Last mammogram was performed 2 years and 11 months ago. History: Patient is postmenopausal and has history of other cancer at age 54. Benign stereotactic core biopsy of the right breast, September 06, 2002. Physical Findings: A clinical breast exam by your physician is recommended on an annual basis and results should be correlated with mammographic findings. MG Screening Mammo w CAD Bilateral CC and MLO view(s) were taken. Prior study comparison: December 25, 2016, bilateral MG screening mammo w CAD. December 01, 2015, bilateral MG screening mammo w CAD. There are scattered fibroglandular densities. Minimal vascular calcifcations noted on the left. No significant changes when compared with prior studies. ASSESSMENT: Negative, BI-RAD 1 RECOMMENDATION: Routine screening mammogram of both breasts in 1 year.
== END | disposition home or self-care (01) ==
LOC: RADMAMWWP 14:50
PROVIDERS: ATTEND Obstetrics & Gynecology
DX: Z12.31 Encounter for screening mammogram for malignant neoplasm of breast (principal); Z78.0 Asymptomatic menopausal state
CPT/HCPCS: 77067; 77080

== ENCOUNTER 2021-01-27 18:24 | Emergency (ER) | payer BC ==
[2021-01-27 18:41] VITALS: BP 147/90; PULSE 63; RESP 18; TEMP 97.5
--- NOTE | 2021-01-27 20:44 | XR ---
EXAMINATION TYPE: XR chest 1V portable DATE OF EXAM: 01/27/2021 COMPARISON: 08/02/2019 HISTORY: Short of breath. Cough. TECHNIQUE: FINDINGS: Heart is enlarged. There is coarse interstitial infiltrate in the mid and lower lung leigh . There is no obvious heart failure. There are no hilar masses. I see no definite pleural effusion. IMPRESSION: Cardiomegaly. Interstitial pulmonary infiltrates in the lower lung leigh increased randy red to old exam. No obvious heart failure.
[2021-01-27 21:00] LABS: Basophils # (A) 0.1 k/uL (0-0.2); Basophils % (A) 2 %; Eosinophils # (A) 0.2 k/uL (0-0.7); Eosinophils % (A) 3 %; HCT 47.1 % (34.0-46.0); HGB 15.4 gm/dL (11.4-16.0); Lymphocytes # (A) 3.5 k/uL (1.0-4.8); Lymphocytes % (A) 45 %; MCH 28.2 pg (25.0-35.0); MCHC 32.6 g/dL (31.0-37.0); MCV 86.5 fL (80.0-100.0); Mean Platelet Volume 7.7; Monocytes # (A) 0.7 k/uL (0-1.0); Monocytes % (A) 9 %; Neutrophils % (A) 39 %; Platelet Count 295 k/uL (150-450); RBC 5.44 m/uL (3.80-5.40); RDW 15.5 % (11.5-15.5); WBC 7.6 k/uL (3.8-10.6)
[2021-01-27 21:12] LABS: Partial Thromboplastin Time 22.9 sec (22.0-30.0); Prothrombin Time 10.7 sec (9.0-12.0)
[2021-01-27 21:14] LABS: ALT 17 U/L (4-34); AST 42 U/L (14-36); African American GFR (CKD) >90 (>60 ml/min/1.73 sqM); Albumin 4.3 g/dL (3.5-5.0); Alkaline Phosphatase 86 U/L (38-126); Anion Gap 11 mmol/L; Blood Urea Nitrogen 10 mg/dL (7-17); C Reactive Protein 0.9 mg/dL (<1.0); Calcium 8.8 mg/dL (8.4-10.2); Carbon Dioxide 23 mmol/L (22-30); Chloride 103 mmol/L (98-107); Glucose 149 mg/dL (74-99); LDH 1068 U/L (313-618); Magnesium 1.7 mg/dL (1.6-2.3); Non-African American GFR(CKD) >90 (>60 ml/min/1.73 sqM); Sodium 137 mmol/L (137-145); Total Bilirubin 0.8 mg/dL (0.2-1.3)
--- NOTE | 2021-01-27 21:14 | ED ---
General Adult HPI - General Chief complaint: Upper Respiratory Infection Stated complaint: Covid+/SOB/Cough/diarrhea Time Seen by Provider: 01/27/21 19:28 Source: patient Mode of arrival: ambulatory Limitations: no limitations - History of Present Illness Initial comments: 65 year-old female patient with past history significant for pulmonary hypertension, oxygen dependence at 2 L, presents to the emergency department for evaluation of shortness of breath, cough, body aches, and fatigue. She did have fevers with the first couple of days of symptoms. Reports nausea and diarrhea. Patient tested positive for COVID-19 at urgent care and was sent to ED for further evaluation. Patient states symptoms started 3 days ago. Patient denies any recent rash, chest pain, abdominal pain, constipation, back pain, numbness, tingling, dizziness, hematuria, dysuria, urinary urgency, urinary frequency, or any other complaints. - Related Data Home Medications Medication Instructions Recorded Confirmed ALPRAZolam [Xanax] 0.25 mg PO Q6H PRN 08/02/19 08/02/19 Citalopram Hydrobromide [CeleXA] 40 mg PO HS 08/02/19 08/02/19 HYDROcodone/APAP 7.5-325MG [[place] 1 tab PO HS PRN 08/02/19 08/02/19 7.5-325] Insulin Aspart Protam & Aspart 40 unit SQ AC-BRKFST 08/02/19 08/02/19 [NovoLOG MIX 70-30 Flexpen] Insulin Aspart Protam & Aspart 60 unit SQ AC-SUPPER 08/02/19 08/02/19 [NovoLOG MIX 70-30 Flexpen] Losartan Potassium [Cozaar] 100 mg PO HS 08/02/19 08/02/19 Omeprazole 20 mg PO HS 08/02/19 08/02/19 Simvastatin [Zocor] 40 mg PO HS 08/02/19 08/02/19 Tadalafil 40 mg PO HS 08/02/19 08/02/19 Tobramycin [Tobrex 0.3% Ophth Soln] 1 drop BOTH EYES QID 08/02/19 08/02/19 metFORMIN HCL [Glucophage] 500 mg PO DAILY 08/02/19 08/02/19 Previous Rx's Medication Instructions Recorded Albuterol Inhaler (Mhu) [Ventolin 1 - 2 puff INHALATION RT-Q6H PRN 08/04/19 Hfa Inhaler (Mhu)] #1 inhaler Furosemide [Lasix] 40 mg PO 0900,1600 #60 tablet 08/04/19 Levofloxacin [Levaquin] 500 mg PO DAILY #5 tab 08/04/19 Metoprolol Tartrate [Lopressor] 25 mg PO BID #60 tab 08/04/19 guaiFENesin-DM 100-10MG/5ML 10 ml PO Q6H PRN #1 bottle 08/04/19 [Robitussin DM] predniSONE 10 mg PO DIRECTED #15 tab 08/04/19 Allergies Allergy/AdvReac Type Severity Reaction Status Date / Time cefaclor [From Ceclor] Allergy Dyspnea Verified 01/27/21 18:38 sulfamethoxazole Allergy Rash/Hives Verified 01/27/21 18:38 [From Bactrim] trimethoprim [From Bactrim] Allergy Rash/Hives Verified 01/27/21 18:38 Review of Systems ROS Statement: Those systems with pertinent positive or pertinent negative responses have been documented in the HPI. ROS Other: All systems not noted in ROS Statement are negative. Past Medical History Past Medical History: Heart Failure, Diabetes Mellitus Additional Past Medical History / Comment(s): pulmonary hypertension. CHF. History of Any Multi-Drug Resistant Organisms: None Reported Past Surgical History: Hysterectomy, Orthopedic Surgery Additional Past Surgical History / Comment(s): pancreatic tumor - gallbladder and spleenectomy. melanoma cx on arm and leg. BL knee scope Past Psychological History: No Psychological Hx Reported Smoking Status: Former smoker Past Alcohol Use History: None Reported Past Drug Use History: None Reported General Exam Limitations: no limitations General appearance: alert, in no apparent distress, other (This is a well- developed, well-nourished adult female patient in no acute distress. Vital signs upon presentation are temperature 97.5F, pulse 63, respirations 18, blood pressure 147/90, pulse ox 92% on room air.) Eye exam: Present: normal appearance, PERRL, EOMI. Absent: scleral icterus, conjunctival injection, periorbital swelling ENT exam: Present: normal exam, normal oropharynx, mucous membranes moist Respiratory exam: Present: normal lung sounds bilaterally. Absent: respiratory distress, wheezes, rales, rhonchi, stridor Cardiovascular Exam: Present: regular rate, normal rhythm, normal heart sounds. Absent: systolic murmur, diastolic murmur, rubs, gallop, clicks GI/Abdominal exam: Present: soft, normal bowel sounds. Absent: distended, tenderness, guarding, rebound, rigid Neurological exam: Present: alert, oriented X3, CN II-XII intact Psychiatric exam: Present: normal affect, normal mood Skin exam: Present: warm, dry, intact, normal color. Absent: rash Course Vital Signs 01/27/21 18:38 Temperature 97.5 F L Pulse Rate 63 Respiratory 18 Rate Blood Pressure 147/90 O2 Sat by Pulse 92 L Oximetry EKG Findings - EKG Comments: EKG Findings:: EKG obtained at 2043 shows sinus bradycardia with a ventricular rate of 57, NJ interval 170, QRS duration 102, QTc 498, QTC 484. There is evidence of inverted T waves which are present on previous EKG from 08/02/2019. Medical Decision Making - Medical Decision Making 65 year-old female patient presents to the emergency department sent by [facility] after testing positive for COVID-19. She is oxygen dependent and has pulmonary hypertension. Physical examination reveals clear lung sounds. She is 92% on room air and did not arrive with her home oxygen. Labs reviewed and mostly unremarkable. LDH is elevated. Chest x-ray did show infiltrates. I did discuss findings and results with her. I did see her positive Covid result from the [facility]. I discussed infusion of bamlanivimab with her including risks versus benefits. She would like to receive this medication. This was infused, she is monitored for one hour without complications. She will be discharged to follow up with her primary care physician for recheck in 1-2 days. Return parameters were discussed in detail. She verbalizes understanding and agrees with this plan. Case discussed with my attending Dr. Quispe. - Lab Data Result diagrams: 01/27/21 20:44 01/27/21 20:44 Lab Results 01/27/21 01/27/21 01/27/21 Range/Units 20:44 20:44 20:44 WBC 7.6 (3.8-10.6) k/uL RBC 5.44 H (3.80-5.40) m/uL Hgb 15.4 (11.4-16.0) gm/dL Hct 47.1 H (34.0-46.0) % MCV 86.5 (80.0-100.0) fL MCH 28.2 (25.0-35.0) pg MCHC 32.6 (31.0-37.0) g/dL RDW 15.5 (11.5-15.5) % Plt Count 295 (150-450) k/uL MPV 7.7 Neutrophils % 39 % Lymphocytes % 45 % Monocytes % 9 % Eosinophils % 3 % Basophils % 2 % Neutrophils # 3.0 (1.3-7.7) k/uL Lymphocytes # 3.5 (1.0-4.8) k/uL Monocytes # 0.7 (0-1.0) k/uL Eosinophils # 0.2 (0-0.7) k/uL Basophils # 0.1 (0-0.2) k/uL PT 10.7 (9.0-12.0) sec INR 1.0 (<1.2) APTT 22.9 (22.0-30.0) sec D-Dimer 0.66 H (<0.60) mg/L FEU Sodium 137 (137-145) mmol/L Potassium 5.0 (3.5-5.1) mmol/L Chloride 103 (98-107) mmol/L Carbon Dioxide 23 (22-30) mmol/L Anion Gap 11 mmol/L BUN 10 (7-17) mg/dL Creatinine 0.59 (0.52-1.04) mg/dL Est GFR (CKD-EPI)AfAm >90 (>60 ml/min/1.73 sqM) Est GFR (CKD-EPI)NonAf >90 (>60 ml/min/1.73 sqM) Glucose 149 H (74-99) mg/dL Plasma Lactic Acid Ehsan (0.7-2.0) mmol/L Calcium 8.8 (8.4-10.2) mg/dL Magnesium 1.7 (1.6-2.3) mg/dL Total Bilirubin 0.8 (0.2-1.3) mg/dL AST 42 H (14-36) U/L ALT 17 (4-34) U/L Alkaline Phosphatase 86 (38-126) U/L Lactate Dehydrogenase 1068 H (313-618) U/L C-Reactive Protein 0.9 (<1.0) mg/dL Total Protein 8.0 (6.3-8.2) g/dL Albumin 4.3 (3.5-5.0) g/dL 01/27/21 Range/Units 20:44 WBC (3.8-10.6) k/uL RBC (3.80-5.40) m/uL Hgb (11.4-16.0) gm/dL Hct (34.0-46.0) % MCV (80.0-100.0) fL MCH (25.0-35.0) pg MCHC (31.0-37.0) g/dL RDW (11.5-15.5) % Plt Count (150-450) k/uL MPV Neutrophils % % Lymphocytes % % Monocytes % % Eosinophils % % Basophils % % Neutrophils # (1.3-7.7) k/uL Lymphocytes # (1.0-4.8) k/uL Monocytes # (0-1.0) k/uL Eosinophils # (0-0.7) k/uL Basophils # (0-0.2) k/uL PT (9.0-12.0) sec INR (<1.2) APTT (22.0-30.0) sec D-Dimer (<0.60) mg/L FEU Sodium (137-145) mmol/L Potassium (3.5-5.1) mmol/L Chloride (98-107) mmol/L Carbon Dioxide (22-30) mmol/L Anion Gap mmol/L BUN (7-17) mg/dL Creatinine (0.52-1.04) mg/dL Est GFR (CKD-EPI)AfAm (>60 ml/min/1.73 sqM) Est GFR (CKD-EPI)NonAf (>60 ml/min/1.73 sqM) Glucose (74-99) mg/dL Plasma Lactic Acid Ehsan 1.7 (0.7-2.0) mmol/L Calcium (8.4-10.2) mg/dL Magnesium (1.6-2.3) mg/dL Total Bilirubin (0.2-1.3) mg/dL AST (14-36) U/L ALT (4-34) U/L Alkaline Phosphatase (38-126) U/L Lactate Dehydrogenase (313-618) U/L C-Reactive Protein (<1.0) mg/dL Total Protein (6.3-8.2) g/dL Albumin (3.5-5.0) g/dL - Radiology Data Radiology results: report reviewed, image reviewed One view x-ray of the chest is obtained. Report was reviewed in its entirety. Impression by Dr. Hathaway shows cardiomegaly. Interstitial pulmonary infiltrates in the lower lung leigh increased compared to old exam. No obvious heart failure. Disposition Clinical Impression: Pneumonia due to COVID-19 virus Disposition: HOME SELF-CARE Condition: Good Instructions (If sedation given, give patient instructions): Coronavirus Disease 2019 (COVID-19), Viral Pneumonia (ED) Additional Instructions: Follow-up with your primary care physician for recheck in 1-2 days. Return to the emergency department for any new, worsening, or concerning symptoms. Is patient prescribed a controlled substance at d/c from ED?: No Referrals: Deisy Robertson MD [Primary Care Provider] - 1-2 days Time of Disposition: 00:15
[2021-01-27 21:17] LABS: D-Dimer 0.66 mg/L FEU (<0.60)
[2021-01-27] MEDS ORDERED: BAMLANIVIMAB (EUA) 700 MG, ETESEVIMAB (EUA) 1,400 MG in SODIUM CHLORIDE 0.9% 50 ML IVPB ONE (23:00)
[2021-01-28 09:14] LABS: Ferritin 43.1 ng/mL (10.0-291.0)
== END 2021-01-28 00:25 | disposition home or self-care (01) ==
LOC: EC 18:24
DX: U07.1 COVID-19 (principal); J12.82 Pneumonia due to coronavirus disease 2019; E11.9 Type 2 diabetes mellitus without complications; I11.0 Hypertensive heart disease with heart failure; I50.9 Heart failure, unspecified; Z79.899 Other long term (current) drug therapy; Z79.4 Long term (current) use of insulin; Z88.1 Allergy status to other antibiotic agents; Z88.2 Allergy status to sulfonamides; Z87.891 Personal history of nicotine dependence; Z85.820 Personal history of malignant melanoma of skin; Z99.81 Dependence on supplemental oxygen
CPT/HCPCS: 36415; 93005; 85379; 80053; 82728; 83605; 83615; 83735; 85025; 85610; 85730; 86140; 84145; 71045; 99285; 96365; Q0245

== ENCOUNTER 2022-02-22 19:35 | Emergency (ER) | payer BC, MEDICARE ==
[2022-02-22 19:45] VITALS: TEMP 98.7
--- NOTE | 2022-02-22 20:23 | XR ---
EXAMINATION TYPE: XR thoracic spine complete DATE OF EXAM: 02/22/2022 COMPARISON: NONE HISTORY: Back pain TECHNIQUE: 3 views FINDINGS: The thoracic vertebra have normal alignment. No compression fracture. There is no paraspina l mass. There is mild multilevel hypertrophic degenerative spur formation. IMPRESSION: Mild spurring. No fracture seen.
[2022-02-22] MEDS ORDERED: MORPHINE SULFATE 4 MG/ML SYRINGE IM STA (21:40)
[2022-02-22] MEDS ORDERED: LIDOCAINE 5% PATCH TOPICAL SCH (21:45)
--- NOTE | 2022-02-22 23:47 | ED ---
General Adult HPI - General Chief complaint: Extremity Injury, Upper Stated complaint: L Shoulder blade pain/SOB Time Seen by Provider: 02/22/22 21:23 Source: patient Mode of arrival: wheelchair Limitations: no limitations - History of Present Illness Initial comments: Patient is a 66-year-old female who presents to the emergency department with a chief complaint of middle back pain. Patient states she was walking with her granddaughter when the pain began today. No known injury. Patient reports his pain over the middle back of the left scapula. There is increased pain with shoulder extension and neck rotation to the left. No shoulder or neck pain particularly. No chest pain, shortness of breath, or abdominal pain. Patient has not taken any medication for pain. She denies numbness and tingling in the groin/buttock. No loss of bowel/bladder function. No history of cancer. No recent weight loss. - Related Data Home Medications Medication Instructions Recorded Confirmed ALPRAZolam [Xanax] 0.25 mg PO Q6H PRN 08/02/19 02/22/22 Citalopram Hydrobromide [CeleXA] 40 mg PO HS 08/02/19 02/22/22 Insulin Aspart Protam & Aspart 64 unit SQ BID 08/02/19 02/22/22 [NovoLOG MIX 70-30 Flexpen] Losartan Potassium [Cozaar] 100 mg PO HS 08/02/19 02/22/22 Omeprazole 20 mg PO HS 08/02/19 02/22/22 Simvastatin [Zocor] 40 mg PO HS 08/02/19 02/22/22 Tadalafil 40 mg PO HS 08/02/19 02/22/22 metFORMIN HCL [Glucophage] 500 mg PO BID 08/02/19 02/22/22 HYDROcodone/APAP 10-325MG [[place] 1 tab PO BID PRN 02/22/22 02/22/22 10-325] Ketoconazole 2% Cream [Nizoral 2%] 1 applic TOPICAL DAILY PRN 02/22/22 02/22/22 Potassium Chloride ER [K-Dur 20] 20 meq PO DAILY 02/22/22 02/22/22 amLODIPine [Norvasc] 2.5 mg PO DAILY 02/22/22 02/22/22 tiZANidine HCL 2 mg PO BID PRN 02/22/22 02/22/22 Previous Rx's Medication Instructions Recorded Lidocaine 5% Patch [Lidoderm 5% 1 patch TOPICAL DAILY PRN #7 patch 02/22/22 Patch] Allergies Allergy/AdvReac Type Severity Reaction Status Date / Time cefaclor [From Ceclor] Allergy Dyspnea Verified 02/22/22 23:45 sulfamethoxazole Allergy Rash/Hives Verified 02/22/22 23:45 [From Bactrim] trimethoprim [From Bactrim] Allergy Rash/Hives Verified 02/22/22 23:45 Review of Systems ROS Statement: Those systems with pertinent positive or pertinent negative responses have been documented in the HPI. ROS Other: All systems not noted in ROS Statement are negative. Past Medical History Past Medical History: Heart Failure, Diabetes Mellitus Additional Past Medical History / Comment(s): pulmonary hypertension. CHF. History of Any Multi-Drug Resistant Organisms: None Reported Past Surgical History: Hysterectomy, Orthopedic Surgery Additional Past Surgical History / Comment(s): pancreatic tumor - gallbladder and spleenectomy. melanoma cx on arm and leg. BL knee scope Past Psychological History: No Psychological Hx Reported Smoking Status: Former smoker Past Alcohol Use History: None Reported Past Drug Use History: None Reported General Exam Limitations: no limitations General appearance: alert, in no apparent distress Head exam: Present: atraumatic, normocephalic, normal inspection Eye exam: Present: normal appearance, PERRL, EOMI. Absent: scleral icterus, conjunctival injection, periorbital swelling Neck exam: Present: normal inspection, full ROM. Absent: tenderness, lymphadenopathy Respiratory exam: Present: normal lung sounds bilaterally. Absent: respiratory distress, wheezes, rales, rhonchi, stridor Cardiovascular Exam: Present: regular rate, normal rhythm, normal heart sounds. Absent: systolic murmur, diastolic murmur, rubs, gallop, clicks GI/Abdominal exam: Present: soft, normal bowel sounds. Absent: distended, tenderness, guarding, rebound, rigid Back exam: Present: paraspinal tenderness (very tendrhoracic medial to scapula). Absent: muscle spasm, vertebral tenderness Neurological exam: Present: alert, oriented X3, CN II-XII intact Psychiatric exam: Present: normal affect, normal mood Skin exam: Present: warm, dry, intact, normal color. Absent: rash Course Vital Signs 02/22/22 02/22/22 19:43 22:45 Temperature 98.7 F Pulse Rate 73 75 Respiratory 18 16 Rate Blood Pressure 168/99 154/89 O2 Sat by Pulse 95 97 Oximetry Medical Decision Making - Medical Decision Making This is a 66-year-old female who presents with thoracic back pain since this afternoon. Thorough history and examination were performed. Patient is very tender with palpation of the left paraspinal thoracic region just medial to the left scapula. There is no overlying erythema, swelling, or ecchymosis. No injury. No chest pain or shortness of breath. Pain controlled with morphine and lidocaine patch. With her pain being reproducible this is likely musculoskeletal in nature. Patient states she already has muscle relaxers and Chelsea at home. She takes her Chelsea nightly. She'll be discharged with instruction to use her muscle relaxers and Chelsea at night. She can take Motrin or Advil during the day and apply lidocaine patches as directed. She is instructed to follow-up with her primary care provider in 1 to 2 days. Return parameters discussed. She verbalizes understanding and is agreeable to this plan. Dr. Quispe is my attending. Disposition Clinical Impression: Thoracic back pain Disposition: HOME SELF-CARE Condition: Good Instructions (If sedation given, give patient instructions): Thoracic Pain (ED) Additional Instructions: Please apply lidocaine patches as directed. You can also apply ice for the first 24-48 hours and heating pads after for symptom relief. Take Motrin or Advil during the day. You may take your previously prescribed Chelsea at night as scheduled. Follow-up with primary care provider in one to 2 days. Rest the area as much as possible with no strenuous exercise until symptoms improved greatly. Return to the emergency department if you experience new, concerning, or worsening symptoms. Prescriptions: Lidocaine 5% Patch [Lidoderm 5% Patch] 1 patch TOPICAL DAILY PRN #7 patch PRN Reason: Pain Is patient prescribed a controlled substance at d/c from ED?: No Referrals: Deisy Robertson MD [Primary Care Provider] - 1-2 days Time of Disposition: 23:47
[2022-02-22 23:56] VITALS: BP 154/89; PULSE 75; RESP 16
== END 2022-02-22 23:57 | disposition home or self-care (01) ==
LOC: EC 19:35
DX: M54.6 Pain in thoracic spine (principal); E11.9 Type 2 diabetes mellitus without complications; I50.9 Heart failure, unspecified; Z87.891 Personal history of nicotine dependence; Z88.2 Allergy status to sulfonamides; Z88.8 Allergy status to other drugs, medicaments and biological substances; Z79.899 Other long term (current) drug therapy; Z79.84 Long term (current) use of oral hypoglycemic drugs; Z79.4 Long term (current) use of insulin; X58.XXXA Exposure to other specified factors, initial encounter; Y93.01 Activity, walking, marching and hiking
CPT/HCPCS: 72072; 99283; 96372; J2270

== ENCOUNTER 2022-04-01 17:15 | Emergency (ER) | payer BC, MEDICARE ==
[2022-04-01 17:19] VITALS: TEMP 98.5
--- NOTE | 2022-04-01 21:10 | XR ---
EXAMINATION TYPE: XR chest 2V DATE OF EXAM: 04/01/2022 COMPARISON: NONE HISTORY: Short of breath TECHNIQUE: 2 views FINDINGS: There is no heart failure nor confluent pneumonic infiltrate. There are some coarse pulmona ry density in the lower lung leigh. There are no hilar masses. No pleural effusion. Bony thorax is i ntact. IMPRESSION: Coarse lung markings in the lower lung leigh. There could be some component of atelectas is. This appears increased compared to old exam. No heart failure.
[2022-04-01 22:06] LABS: Basophils # (A) 0.2 k/uL (0-0.2); Basophils % (A) 1 %; Eosinophils # (A) 0.5 k/uL (0-0.7); Eosinophils % (A) 3 %; HCT 44.2 % (34.0-46.0); HGB 13.7 gm/dL (11.4-16.0); Hypochromasia Slight; Lymphocytes # (A) 3.4 k/uL (1.0-4.8); Lymphocytes % (A) 18 %; MCH 27.9 pg (25.0-35.0); MCV 90.2 fL (80.0-100.0); Mean Platelet Volume 7.6; Monocytes # (A) 1.1 k/uL (0-1.0); Monocytes % (A) 6 %; Neutrophils # (A) 13.4 k/uL (1.3-7.7); Neutrophils % (A) 71 %; Platelet Count 408 k/uL (150-450); RDW 15.4 % (11.5-15.5); WBC 18.8 k/uL (3.8-10.6)
--- NOTE | 2022-04-01 22:13 | ED ---
General Adult HPI - General Chief complaint: Upper Respiratory Infection Stated complaint: SOB, sore throat Time Seen by Provider: 04/01/22 20:30 Source: patient, RN notes reviewed, old records reviewed Mode of arrival: wheelchair Limitations: no limitations - History of Present Illness Initial comments: Patient is a 66-year-old female with past with history remarkable for heart failure, diabetes, pulmonary hypertension who is on 2 L nasal cannula at home oxygen presents emergency Department complaining of worsening minimally productive cough, mild sore throat, eye drainage. She also endorses a runny nose. Denies lower extremity edema that is getting worse. States she is not taking her Lasix as prescribed. Denies any chest pain, nausea, vomiting, diarrhea. Denies any abdominal pain. Endorses mild worsening orthopnea. States she was vaccinated for COVID-19. No other acute findings at this time. sHe presents for further evaluation at this time. The does have been ongoing over the last 5-6 days. - Related Data Home Medications Medication Instructions Recorded Confirmed ALPRAZolam [Xanax] 0.25 mg PO Q6H PRN 08/02/19 04/01/22 Citalopram Hydrobromide [CeleXA] 40 mg PO HS 08/02/19 04/01/22 Insulin Aspart Prot/Insuln Asp 64 unit SQ BID 08/02/19 04/01/22 [NovoLOG MIX 70-30 Flexpen] Losartan Potassium [Cozaar] 100 mg PO HS 08/02/19 04/01/22 Omeprazole 20 mg PO HS 08/02/19 04/01/22 Simvastatin [Zocor] 40 mg PO HS 08/02/19 04/01/22 Tadalafil 40 mg PO HS 08/02/19 04/01/22 metFORMIN HCL [Glucophage] 500 mg PO BID 08/02/19 04/01/22 HYDROcodone/APAP 10-325MG [[place] 1 tab PO BID PRN 02/22/22 04/01/22 10-325] Ketoconazole 2% Cream [Nizoral 2%] 1 applic TOPICAL DAILY PRN 02/22/22 04/01/22 Potassium Chloride ER [K-Dur 20] 20 meq PO DAILY 02/22/22 04/01/22 amLODIPine [Norvasc] 2.5 mg PO DAILY 02/22/22 04/01/22 tiZANidine HCL 2 mg PO BID PRN 02/22/22 04/01/22 Previous Rx's Medication Instructions Recorded Lidocaine 5% Patch [Lidoderm 5% 1 patch TOPICAL DAILY PRN #7 patch 02/22/22 Patch] Doxycycline Hyclate 100 mg PO BID 7 Days #14 capsule 04/01/22 Allergies Allergy/AdvReac Type Severity Reaction Status Date / Time cefaclor [From Ceclor] Allergy Dyspnea Verified 02/22/22 23:45 sulfamethoxazole Allergy Rash/Hives Verified 02/22/22 23:45 [From Bactrim] trimethoprim [From Bactrim] Allergy Rash/Hives Verified 02/22/22 23:45 Review of Systems ROS Statement: Those systems with pertinent positive or pertinent negative responses have been documented in the HPI. Review of Systems: CONST: Denies fever EYES: Denies blurry vision ENT: Endorses nasal congestion C/V: Denies Chest pain RESP: Endorses exertional shortness of breath, cough GI: Denies abdominal pain : Denies dysuria SKIN: Denies rash. MSK: Denies joint pain. NEURO: Denies headache ROS Other: All systems not noted in ROS Statement are negative. Past Medical History Past Medical History: Heart Failure, Diabetes Mellitus Additional Past Medical History / Comment(s): pulmonary hypertension. CHF. History of Any Multi-Drug Resistant Organisms: None Reported Past Surgical History: Hysterectomy, Orthopedic Surgery Additional Past Surgical History / Comment(s): pancreatic tumor - gallbladder and spleenectomy. melanoma cx on arm and leg. BL knee scope Past Psychological History: No Psychological Hx Reported Smoking Status: Former smoker Past Alcohol Use History: None Reported Past Drug Use History: None Reported General Exam - General Exam Comments Initial Comments: General: Appears in no acute distress. HEAD: Normal with no signs of head trauma. EYES: PERRLA, EOMI, conjunctiva normal, no discharge. ENT: Hearing grossly intact, normal oropharynx. RESPIRATORY: Clear breath sounds bilaterally. No wheezes, rales, or rhonchi. Minimal increased work of breathing. Mild hypoxia on room air, improved on 2 L nasal cannula. C/V: Regular rate and rhythm. S1 and S2 auscultated, mild 1+ pitting edema that is symmetrical bilateral lower extremities, peripheral pulses 2+ and intact throughout ABD: Abd is soft, nontender, nondistended EXT: Normal range of motion, no obvious deformity SKIN: No rashes or lesions observed on exposed skin. NEURO: Alert and oriented 4. No focal deficits. Limitations: no limitations Course Vital Signs 04/01/22 04/01/22 17:17 20:30 Temperature 98.5 F Pulse Rate 88 77 Respiratory 26 H 24 Rate Blood Pressure 145/87 143/83 O2 Sat by Pulse 90 L 93 L Oximetry Medical Decision Making - Medical Decision Making Based on the patient's presentation and physical exam, I'm concerned for acute cardio pulmonary process for current symptoms. It could be infectious but cannot rule out other etiology at this time, including cardiac related or PE. Therefore a screening d-dimer will be obtained in addition to BNP, troponin, EKG and basic labs. Chest x-ray and viral swabs also be obtained. Patient was in agreement this plan. EKG shows chronic changes with no signs of acute ischemia. Chest x-ray reveals coarse lung markings in the lower lung leigh is increased when compared to prior exams.Patient is Covid and influenza negative. Patient does have a leukocytosis of 18. Patient has an age-adjusted d-dimer within normal limits of 0.65. Troponin is negative, and BNP is within normal limits. Remainder of the labs are unremarkable. On reevaluation, vital signs remained stable and within normal limits. On her normal home 2 L nasal cannula, she is saturating 93-96%. Work of breathing has improved at this time. We did discuss her negative workup overall. It does appear she likely has an acute infectious process which I'm guessing is likely secondary to a pulmonary infection, particularly with her symptoms. I did recommend we empirically start her on antibiotics for possible bronchitis. She was in agreement this plan. She'll be started on doxycycline provided with a prescription. Recommended strict return precautions as well as follow-up with her PCP in the next few days. She would Like to go home at this time and I believe this is reasonable. I will provide the patient with a prescription for doxycycline. I instructed the patient to follow up with their PCP in the next 3 days. I explained that the patient should return to the emergency department if they experience any worsening symptoms. Strict return precautions were discussed with the patient. The patient expressed understanding of these instructions. I answered all questions that the patient had. The patient was discharged home in good condition with their prescriptions and follow up information. - Lab Data Result diagrams: 04/01/22 21:23 06/20/22 21:23 Lab Results 04/01/22 04/01/22 04/01/22 Range/Units 17:28 17:28 21:23 WBC 18.8 H (3.8-10.6) k/uL RBC 4.90 (3.80-5.40) m/uL Hgb 13.7 (11.4-16.0) gm/dL Hct 44.2 (34.0-46.0) % MCV 90.2 (80.0-100.0) fL MCH 27.9 (25.0-35.0) pg MCHC 31.0 (31.0-37.0) g/dL RDW 15.4 (11.5-15.5) % Plt Count 408 (150-450) k/uL MPV 7.6 Neutrophils % 71 % Lymphocytes % 18 % Monocytes % 6 % Eosinophils % 3 % Basophils % 1 % Neutrophils # 13.4 H (1.3-7.7) k/uL Lymphocytes # 3.4 (1.0-4.8) k/uL Monocytes # 1.1 H (0-1.0) k/uL Eosinophils # 0.5 (0-0.7) k/uL Basophils # 0.2 (0-0.2) k/uL Hypochromasia Slight PT (9.0-12.0) sec INR (<1.2) APTT (22.0-30.0) sec D-Dimer (<0.60) mg/L FEU Sodium (137-145) mmol/L Potassium (3.5-5.1) mmol/L Chloride (98-107) mmol/L Carbon Dioxide (22-30) mmol/L Anion Gap mmol/L BUN (7-17) mg/dL Creatinine (0.52-1.04) mg/dL Est GFR (CKD-EPI)AfAm (>60 ml/min/1.73 sqM) Est GFR (CKD-EPI)NonAf (>60 ml/min/1.73 sqM) Glucose (74-99) mg/dL Calcium (8.4-10.2) mg/dL Magnesium (1.6-2.3) mg/dL Total Bilirubin (0.2-1.3) mg/dL AST (14-36) U/L ALT (4-34) U/L Alkaline Phosphatase (38-126) U/L Troponin I (0.000-0.034) ng/mL NT-Pro-B Natriuret Pep pg/mL Total Protein (6.3-8.2) g/dL Albumin (3.5-5.0) g/dL Coronavirus (PCR) Not Detected (Not Detectd) Influenza Type A RNA Not Detected (Not Detectd) Influenza Type B (PCR) Not Detected (Not Detectd) 04/01/22 04/01/22 04/01/22 Range/Units 21:23 21:23 21:23 WBC (3.8-10.6) k/uL RBC (3.80-5.40) m/uL Hgb (11.4-16.0) gm/dL Hct (34.0-46.0) % MCV (80.0-100.0) fL MCH (25.0-35.0) pg MCHC (31.0-37.0) g/dL RDW (11.5-15.5) % Plt Count (150-450) k/uL MPV Neutrophils % % Lymphocytes % % Monocytes % % Eosinophils % % Basophils % % Neutrophils # (1.3-7.7) k/uL Lymphocytes # (1.0-4.8) k/uL Monocytes # (0-1.0) k/uL Eosinophils # (0-0.7) k/uL Basophils # (0-0.2) k/uL Hypochromasia PT 11.1 (9.0-12.0) sec INR 1.0 (<1.2) APTT 24.5 (22.0-30.0) sec D-Dimer 0.65 H (<0.60) mg/L FEU Sodium 135 L (137-145) mmol/L Potassium 4.1 (3.5-5.1) mmol/L Chloride 104 (98-107) mmol/L Carbon Dioxide 23 (22-30) mmol/L Anion Gap 8 mmol/L BUN 11 (7-17) mg/dL Creatinine 0.54 (0.52-1.04) mg/dL Est GFR (CKD-EPI)AfAm >90 (>60 ml/min/1.73 sqM) Est GFR (CKD-EPI)NonAf >90 (>60 ml/min/1.73 sqM) Glucose 150 H (74-99) mg/dL Calcium 8.8 (8.4-10.2) mg/dL Magnesium 1.5 L (1.6-2.3) mg/dL Total Bilirubin 0.5 (0.2-1.3) mg/dL AST 19 (14-36) U/L ALT 11 (4-34) U/L Alkaline Phosphatase 88 (38-126) U/L Troponin I <0.012 (0.000-0.034) ng/mL NT-Pro-B Natriuret Pep pg/mL Total Protein 7.3 (6.3-8.2) g/dL Albumin 4.0 (3.5-5.0) g/dL Coronavirus (PCR) (Not Detectd) Influenza Type A RNA (Not Detectd) Influenza Type B (PCR) (Not Detectd) 04/01/22 Range/Units 21:23 WBC (3.8-10.6) k/uL RBC (3.80-5.40) m/uL Hgb (11.4-16.0) gm/dL Hct (34.0-46.0) % MCV (80.0-100.0) fL MCH (25.0-35.0) pg MCHC (31.0-37.0) g/dL RDW (11.5-15.5) % Plt Count (150-450) k/uL MPV Neutrophils % % Lymphocytes % % Monocytes % % Eosinophils % % Basophils % % Neutrophils # (1.3-7.7) k/uL Lymphocytes # (1.0-4.8) k/uL Monocytes # (0-1.0) k/uL Eosinophils # (0-0.7) k/uL Basophils # (0-0.2) k/uL Hypochromasia PT (9.0-12.0) sec INR (<1.2) APTT (22.0-30.0) sec D-Dimer (<0.60) mg/L FEU Sodium (137-145) mmol/L Potassium (3.5-5.1) mmol/L Chloride (98-107) mmol/L Carbon Dioxide (22-30) mmol/L Anion Gap mmol/L BUN (7-17) mg/dL Creatinine (0.52-1.04) mg/dL Est GFR (CKD-EPI)AfAm (>60 ml/min/1.73 sqM) Est GFR (CKD-EPI)NonAf (>60 ml/min/1.73 sqM) Glucose (74-99) mg/dL Calcium (8.4-10.2) mg/dL Magnesium (1.6-2.3) mg/dL Total Bilirubin (0.2-1.3) mg/dL AST (14-36) U/L ALT (4-34) U/L Alkaline Phosphatase (38-126) U/L Troponin I (0.000-0.034) ng/mL NT-Pro-B Natriuret Pep 222 pg/mL Total Protein (6.3-8.2) g/dL Albumin (3.5-5.0) g/dL Coronavirus (PCR) (Not Detectd) Influenza Type A RNA (Not Detectd) Influenza Type B (PCR) (Not Detectd) - EKG Data -: EKG Interpreted by Me EKG Comments: 12-lead Electrocardiogram Interpretation Note EKG was reviewed and interpreted by myself. 12-lead ECG performed at 2112 is interpreted by me as revealing normal sinus rhythm at a rate of 73 beats per minute. Right axis deviation. [place] interval is 184 ms, QRS duration is 106 ms, QTc is 439 ms. There were no acute ST or T wave abnormalities to suggest myocardial ischemia or injury. Chronic findings which are reproduced on this EKG included T wave inversions in the precordial leads as well as inferior leads which is seen on prior EKGs, including from last year 2020. R wave progression across the precordium was satisfactory. By my interpretation this EKG is non- diagnostic for acute ischemia. It reveals chronic changes seen on old EKGs. Disposition Clinical Impression: Bronchitis Disposition: HOME SELF-CARE Condition: Good Instructions (If sedation given, give patient instructions): Acute Bronchitis (ED) Prescriptions: Doxycycline Hyclate 100 mg PO BID 7 Days #14 capsule Is patient prescribed a controlled substance at d/c from ED?: No Referrals: Deisy Robertson MD [Primary Care Provider] - 1-2 days Time of Disposition: 23:00
[2022-04-01 22:18] LABS: ALT 11 U/L (4-34); AST 19 U/L (14-36); African American GFR (CKD) >90 (>60 ml/min/1.73 sqM); Alkaline Phosphatase 88 U/L (38-126); Anion Gap 8 mmol/L; Blood Urea Nitrogen 11 mg/dL (7-17); Calcium 8.8 mg/dL (8.4-10.2); Carbon Dioxide 23 mmol/L (22-30); Chloride 104 mmol/L (98-107); Glucose 150 mg/dL (74-99); Magnesium 1.5 mg/dL (1.6-2.3); Non-African American GFR(CKD) >90 (>60 ml/min/1.73 sqM); Potassium 4.1 mmol/L (3.5-5.1); Sodium 135 mmol/L (137-145); Total Bilirubin 0.5 mg/dL (0.2-1.3); Total Protein 7.3 g/dL (6.3-8.2)
[2022-04-01 22:32] LABS: Partial Thromboplastin Time 24.5 sec (22.0-30.0); Prothrombin Time 11.1 sec (9.0-12.0)
[2022-04-01] MEDS ORDERED: DOXYCYCLINE 100 MG CAP PO STA (23:02)
[2022-04-01 23:55] VITALS: BP 106/91; PULSE 86; RESP 20
== END 2022-04-01 23:55 | disposition home or self-care (01) ==
LOC: EC 17:15
DX: J40 Bronchitis, not specified as acute or chronic (principal); E11.9 Type 2 diabetes mellitus without complications; Z87.891 Personal history of nicotine dependence; Z20.822 Contact with and (suspected) exposure to COVID-19; Z88.2 Allergy status to sulfonamides; Z88.8 Allergy status to other drugs, medicaments and biological substances; Z88.6 Allergy status to analgesic agent
CPT/HCPCS: 36415; 71046; 80053; 83735; 83880; 84484; 85025; 85379; 85610; 85730; 87502; 87635; 93005

== ENCOUNTER → 2023-08-25 | Outpatient (CLI) | payer MEDICARE ==
--- NOTE | 2023-08-26 09:02 | MM ---
Reason for Exam: Screening (asymptomatic). Last mammogram was performed 3 year(s) and 9 month(s) ago. Patient History: Menarche at age 16. First Full-Term at age 24. Left ovary removed at age 45. Right ovary removed at age 45. Hysterectomy at age 45. Postmenopausal. Other cancer, age 54. 09/06/2002, Benign Stereotactic Core Biopsy on the right side. Sister had breast cancer, age 60. Risk Values: Ghada 5 year model risk: 3.4%. NCI Lifetime model risk: 12.1%. Prior Study Comparison: 12/01/2015 Bilateral Screening Mammogram, [facility]. 12/25/2016 Bilateral Screening Mammogram, [facility]. 12/06/2019 Bilateral Screening Mammogram, [facility]. Tissue Density: The breast tissue is heterogeneously dense. This may lower the sensitivity of mammography. Findings: Analyzed By CAD. There is no suspicious group of microcalcifications or new suspicious mass in either breast. Overall Assessment: Negative, BI-RAD 1 Management: Screening Mammogram of both breasts in 1 year. . Patient should continue monthly self-breast exams. A clinical breast exam by your physician is recommended on an annual basis. This exam should not preclude additional follow-up of suspicious palpable abnormalities. Note on Ghada scores and lifetime risk: 1. A Ghada score greater than 3% is considered moderate risk. If this is the case, consider specialist referral to assess eligibility for a risk reducing agent. 2. If overall lifetime risk for the development of breast cancer is 20% or higher, the patient may qualify for future screening with alternating mammogram and breast MRI. Electronically signed and approved by: Lucian Landeros M.D. Radiologis
== END | disposition home or self-care (01) ==
LOC: RADMAMWWP 14:50
PROVIDERS: ATTEND Family Medicine
DX: Z12.31 Encounter for screening mammogram for malignant neoplasm of breast (principal); Z78.0 Asymptomatic menopausal state; Z80.3 Family history of malignant neoplasm of breast
CPT/HCPCS: 77063; 77067

== ENCOUNTER → 2025-01-03 | Outpatient (CLI) | payer MEDICARE ==
[2025-01-03 14:58] LABS: African American GFR (CKD) >90 (>60 ml/min/1.73 sqM); Blood Urea Nitrogen 13 mg/dL (7-17); Non-African American GFR(CKD) >90 (>60 ml/min/1.73 sqM)
--- NOTE | 2025-01-03 15:54 | CT ---
EXAMINATION TYPE: CT abdomen w con CT DLP: 2102 mGycm, Automated exposure control for dose reduction was used. DATE OF EXAM: 01/03/2025 3:33 PM COMPARISON: CTA chest 08/02/2019 CLINICAL INDICATION:Female, 69 years old with history of K43.9 VENTRAL HERNIA WITHOUT OBSTRUCTION OR GANGRE; Upper abdominal hernia x1 year. TECHNIQUE: Standard CT of the abdomen following the administration of 100 cc of Isovue 300 IV contr ast material and oral contrast. Coronal and sagittal reformats were performed. FINDINGS: LOWER CHEST: Cardiomegaly. The visualized lung bases are clear. Prominent pulmonary arteries. Small m itral annulus calcifications. No pericardial effusion. ABDOMEN LIVER: Unremarkable GALLBLADDER AND BILE DUCTS: Gallbladder is not visualized and appears to be surgical absent. PANCREAS: Unremarkable. SPLEEN: Atrophic spleen and/or splenule's. ADRENAL GLANDS: Right adrenal gland is unremarkable. Left adrenal gland fat containing lesion measuri ng up to 2.3 cm most consistent with a myelolipoma. KIDNEYS AND URETERS: No evidence of hydronephrosis. No right renal calculi. Nonobstructive left renal lower pole 5 mm calculus. The kidneys enhance symmetrically. Bilateral renal sinus cysts. Small left renal superior pole cortical calcification. Contrast is demonstrated within both collecting systems on the delayed phase. STOMACH AND BOWEL: Stomach and duodenum are unremarkable. Enteric contrast reaches the mid to distal small bowel. No focal bowel wall thickening or surrounding inflammatory changes. The appendix is not definitively visualized. No evidence of bowel obstruction. PERITONEUM: No evidence of pneumoperitoneum or free fluid. VASCULATURE: No evidence of aortic aneurysm. MUSCULOSKELETAL: No acute osseous abnormalities LYMPH NODES: No evidence for lymphadenopathy. SOFT TISSUE/ABDOMINAL WALL: Midline ventral wall epigastric region hernia with defect measuring 3.7 x 3.2 cm in TV and CC dimensions (series 3, image 21). This contains nonobstructing transverse colon w ith mesenteric fat. The hernia itself measures grossly 4.9 x 7.4 x 8.9 cm in AP, TV and CC dimensions . Other: Right adnexal 1.6 cm calcification which may represent a calcified fibroid. IMPRESSION: 1. No acute abdominal process. 2. Midline ventral epigastric hernia containing nonobstructing transverse colon and mesenteric fat. 3. Nonobstructing left renal calculus. 4. Left adrenal myelolipoma. [facility], , 01/03/2025 3:51 PM
== END | disposition home or self-care (01) ==
LOC: RADCTMAIN 14:13
PROVIDERS: ATTEND Family Medicine
DX: N20.0 Calculus of kidney (principal); D35.02 Benign neoplasm of left adrenal gland; K43.9 Ventral hernia without obstruction or gangrene
CPT/HCPCS: 82565; 84520; 74160; 36415; Q9967